=== PATIENT | female | born 1970 | race Caucasian/White ===

== ENCOUNTER → 2021-09-21 09:30 | Outpatient (BNVA) | payer OTHER, SELFPAY | PROVIDERS: PCP Internal Medicine; Visit Provider Psychiatry & Neurology Neurology | DX: G43.109 Migraine with aura, not intractable, without status migrainosus (principal); Z92.29 Personal history of other drug therapy | CPT/HCPCS: 64615; 99211; J0585 ==

== ENCOUNTER → 2021-11-17 09:52 | Outpatient (BNVA) | payer OTHER, SELFPAY | PROVIDERS: PCP Internal Medicine; Visit Provider Nurse Practitioner Family | DX: G43.109 Migraine with aura, not intractable, without status migrainosus (principal); Z71.89 Other specified counseling | CPT/HCPCS: 99211 ==

== ENCOUNTER → 2021-12-27 13:09 | Outpatient (BNVA) | payer OTHER, SELFPAY | PROVIDERS: PCP Internal Medicine; Visit Provider Psychiatry & Neurology Neurology | DX: G43.109 Migraine with aura, not intractable, without status migrainosus (principal); Z92.29 Personal history of other drug therapy | CPT/HCPCS: 64615; 99211; J0585 ==

== ENCOUNTER → 2022-03-27 10:50 | Outpatient (BNVA) | payer OTHER, SELFPAY | PROVIDERS: PCP Internal Medicine; Visit Provider Psychiatry & Neurology Neurology | DX: G43.119 Migraine with aura, intractable, without status migrainosus (principal); Z92.29 Personal history of other drug therapy | CPT/HCPCS: 64615; 99211; J0585 ==

== ENCOUNTER → 2022-07-04 13:22 | Outpatient (BNVA) | payer OTHER, SELFPAY | PROVIDERS: PCP Internal Medicine; Visit Provider Psychiatry & Neurology Neurology | DX: G43.119 Migraine with aura, intractable, without status migrainosus (principal); M47.812 Spondylosis without myelopathy or radiculopathy, cervical region | CPT/HCPCS: 64615; 99211; J0585 ==

== ENCOUNTER 2022-08-31 12:45 | Outpatient (REF) | payer OTHER, SELFPAY ==
--- NOTE | ~2022-08-31 | MR_ITS ---
EXAMINATION: MR CERVICAL SPINE WITHOUT CONTRAST CLINICAL INFORMATION: Spondylosis without myelopathy radiculopathy, cervical region. COMPARISON: Pain films of the cervical spine [facility] 03/23/2021. TECHNIQUE: MRI of the cervical spine was obtained using routine sequences without contrast. FINDINGS: VERTEBRAL BODIES AND PARASPINAL SOFT TISSUES: There is slight reversal of the normal cervical lordosis, less severe compared to the prior study. There is a mild retrolisthesis of C5 on C6. There is narrowing of intervertebral disc height with loss of signal from the disc at this level. Vertebral body heights are maintained and no fractures are demonstrated. There is likely a small hemangioma superior facet of C6 on the left. Marrow signal is homogenous. The regional soft tissues are unremarkable. Visualized upper lung mehta appear well-aerated. CERVICOMEDULLARY JUNCTION AND VISUALIZED POSTERIOR FOSSA: The craniocervical and posterior fossa structures are normal. Accounting for artifact, spinal cord signal appears normal. SPINAL LEVELS: C2-C3: The facet joints appear normal bilaterally. Posterior disc contour is normal. There is no spinal cord compression or central stenosis. The neural foramina are patent bilaterally. C3-C4: The facet joints appear normal bilaterally. Posterior disc contour is normal. There is no spinal cord compression or central stenosis. The neural foramina are patent bilaterally. C4-C5: There is mild right facet arthropathy. There is a shallow posterior disc protrusion without mass effect on the thecal sac and there is no central stenosis or cord compression. The neural foramina are patent bilaterally. C5-C6: The facet joints appear normal. There is a shallow posterior soft disc protrusion with some effacement of CSF ventral to the spinal cord, but there is no cord compression or central stenosis. The neural foramina are patent bilaterally. C6-C7: The facet joints appear normal. There is a shallow posterior soft disc protrusion with some effacement of CSF ventral to the spinal cord, but there is no cord compression or central stenosis. The neural foramina are patent bilaterally. C7-T1: The facet joints appear normal bilaterally. Posterior disc contour is normal. There is no spinal cord compression or central stenosis. The neural foramina are patent bilaterally. MR/MR cervical spine wo con IMPRESSION: 1. At C5-C6 and C6-C7 there are shallow posterior disc protrusions without cord compression or central stenosis. The neural foramina are patent. 2. At C4-C5 there is mild right facet arthropathy. There is a shallow posterior disc protrusion without cord compression or central stenosis. The neural foramina are patent. 3. There are no fractures or subluxations. Spinal cord signal appears normal.
== END 2022-08-31 12:46 | disposition home or self-care (01) ==
LOC: HO.MRI 12:45
PROVIDERS: PCP Internal Medicine; Visit Provider Psychiatry & Neurology Neurology
DX: M47.812 Spondylosis without myelopathy or radiculopathy, cervical region (principal)
CPT/HCPCS: 72141

== ENCOUNTER → 2022-10-12 10:17 | Outpatient (BNVA) | payer OTHER, SELFPAY | PROVIDERS: PCP Internal Medicine; Visit Provider Psychiatry & Neurology Neurology | DX: G43.709 Chronic migraine without aura, not intractable, without status migrainosus (principal); M47.812 Spondylosis without myelopathy or radiculopathy, cervical region | CPT/HCPCS: 64615; 99212; J0585 ==

== ENCOUNTER 2023-01-30 12:58 | Outpatient (AMB) | payer OTHER, SELFPAY ==
[2023-01-30 13:01] VITALS: BP 102/78; PULSE 60; O2SAT 98; BMI 32.6
--- NOTE | 2023-01-30 13:01 | MHC.OFFVIS ---
Intake Vital Signs 01/30/23 13:01 Height 5 ft 1 in Weight 172 lb 6 oz BMI 32.6 BP 102/78 Blood Pressure Location Rt brachial Position Sitting Pulse 60 Pulse Source Pulse Oximeter Pulse Oximetry (%) 98 Oxygen Delivery Method Room Air Intake Visit Reasons: Botox(B&B)-lvm Intake Note: Pt presents in office for botox. Hydrotherapist Required: No Allergies Penicillins Allergy (Mild, Verified 01/30/23 13:04) rash Medication List - Last Reconciled 01/30/23 by Gabby Marques MD clindamycin phosphate 1% topical QAM cyclobenzaprine 5 mg PO BEDTIME duloxetine 0 mg PO fluticasone propionate 50 mcg/actuation sprays intranasal fremanezumab-vfrm (Ajovy) 675 mg (4.5 mL) subcut [id number] gabapentin 600 mg PO BID lidocaine 5% 1 patch topical magnesium oxide 400 mg PO DAILY methylprednisolone 4 mg PO DAILY minocycline 100 mg PO Q12H omeprazole 20 mg PO DAILY onabotulinumtoxinA (Botox) to be injected to scalp and neck muscles by physician Q 3 mths; riboflavin (vitamin B2) 400 mg (4 x 100 mg) PO DAILY rizatriptan take 1 tablet at onset of headache; if no relief, may repeat 1 tablet after at least 2 hrs PO sumatriptan succinate 50 mg PO .max 4 tabs a day PRN topiramate 25 mg PO BID venlafaxine ER 75 mg PO DAILY venlafaxine ER 37.5 mg PO DAILY HPI HPI Comments History of Present Illness Details ? 52y/o female comes for treatment of migraines with botox. ??? Most frequent reported adverse reactions following injection of botox for chronic migraine include neck pain (9%), headache(5%), eyelid ptosis(4%), migraine(4%), muscular weakness(4%), musculuskeletal stiffness(4%), bronchitis(3%), injection site pain (3%), musculoskeletal pain(3%), myalgia(3%), facial paresis(2%), HTN(2%) and muscle spasms(2%) were discussed in detail. ??? Botulinum toxin typeA 200units Lot no [id number] expiration Aug 2025 was diluted with 4 cc of normal saline . ??? Muscles injected- ??? Frontalis 4 sites ??? Procerus 1 site ??? Health Promotion Educator- 2 sites ??? Temporalis- 8 sites ??? Occipitalis- 6 sites ??? Cervical paraspinals- 4 sites ??? Trapezius- 6 sites- 10 units each ??? 5 units each in 31 site ??? Total use- 185units ??? Discarded-15units she is doing better since she started on ajovy 5 mths ago [facility] Medical History (Updated 01/30/23 @ 14:06 by Gabby Marques MD) Anxiety Back pain Chronic migraine without aura Depression Neck pain No pertinent family history Surgical History No pertinent past surgical history Family History Father HTN (hypertension) Paternal Grandmother Diabetes Mother Diabetes Social History Alcohol intake: current Alcohol intake frequency: holidays/special occasions only Patient Tobacco Use Status: Never used Tobacco Review of Systems ENT Reports Normal hearing present Neuro Reports Normal hearing present Physical Exam Vital Signs: Oxygen Delivery Method Room Air 01/30/23 13:01 BMI result Body Mass Index 32.6 Const General: cooperative and healthy appearing Nutritional Appearance: obese Orientation/consciousness: patient oriented x3 Limitations: no limitations Resp Effort & Inspection: normal respiratory effort and able to speak in complete sentences Neuro General: patient oriented x3 Cranial nerves: Yes Normal hearing present Cognition (Neuro): normal cognition Gait exam (Neuro): Normal gait present Office Procedures Botulinum toxin Injection 72448 - Migraine Procedure code (CPT) selection complete Office Meds onabotulinumtoxinA Performing Provider: Gabby Marques MD Administered by: Gabby Marques MD on 01/30/23 14:11 Dose Route Admin Location Lot Number Expiration Date NDC Director Labor Standards 185 unit subcut [id number] 08/01/25 5486-5865-56 ALLERGAN/BOTOX Comments: see HPI Assessment & Plan Assessment & Plan (1) Chronic migraine without aura: Code(s): G43.709 - Chronic migraine without aura, not intractable, without status migrainosus (2) Cervical spondylosis: Code(s): M47.812 - Spondylosis without myelopathy or radiculopathy, cervical region Plan Patient tolerated the procedure well she will call with any side effect Continue AJOVY 225 mg sQX3( total 675 mg ) q 3mths Orders: Orders AMB Botulinum toxin Injection Today G43.709 - Chronic migraine without aura, not intractable, without status migrainosus Coding Level of Care Code Est Pt Level 1 (59465) Diagnoses Chronic migraine without aura G43.709 Cervical spondylosis M47.812 CPT Codes Botox Injection - Botox 3: 21171 - Migraine ([id number])
== END 2023-01-30 13:21 | disposition home or self-care (01) ==
PROVIDERS: Visit Provider Psychiatry & Neurology Neurology
DX: G43.709 Chronic migraine without aura, not intractable, without status migrainosus (principal); M47.812 Spondylosis without myelopathy or radiculopathy, cervical region
CPT/HCPCS: 64615; 99211

== ENCOUNTER → 2023-01-30 12:58 | Outpatient (BNVA) | payer OTHER, SELFPAY | PROVIDERS: Visit Provider Psychiatry & Neurology Neurology | DX: G43.709 Chronic migraine without aura, not intractable, without status migrainosus (principal); M47.812 Spondylosis without myelopathy or radiculopathy, cervical region | CPT/HCPCS: 64615; J0585 ==

== ENCOUNTER 2023-05-08 09:55 | Outpatient (AMB) | payer OTHER, SELFPAY ==
[2023-05-08 10:02] VITALS: BP 98/58; PULSE 51; RESP 16; O2SAT 98; BMI 32.3
--- NOTE | 2023-05-08 10:02 | MHC.OFFVIS ---
Intake Vital Signs 05/08/23 10:02 Height 5 ft 1 in Weight 171 lb 2 oz BMI 32.3 BP 98/58 L Blood Pressure Location Rt brachial Position Sitting Respiration 16 Pulse 51 Pulse Source Pulse Oximeter Pulse Oximetry (%) 98 Oxygen Delivery Method Room Air Intake Visit Reasons: Botox(B&B) - Confirmed Intake Note: Pt presents to the office for Botox injections. Commercial Real Estate Appraiser Required: No Allergies Penicillins Allergy (Mild, Verified 05/08/23 10:02) rash Medication List - Last Reconciled 05/08/23 by Gabby Marques MD clindamycin phosphate 1% topical QAM cyclobenzaprine 5 mg PO BEDTIME duloxetine 0 mg PO fluticasone propionate 50 mcg/actuation sprays intranasal fremanezumab-vfrm (Ajovy) 675 mg (4.5 mL) subcut [id number] gabapentin 600 mg PO BID lidocaine 5% 1 patch topical magnesium oxide 400 mg PO DAILY methylprednisolone 4 mg PO DAILY minocycline 100 mg PO Q12H omeprazole 20 mg PO DAILY onabotulinumtoxinA (Botox) to be injected to scalp and neck muscles by physician Q 3 mths; riboflavin (vitamin B2) 400 mg (4 x 100 mg) PO DAILY rizatriptan take 1 tablet at onset of headache; if no relief, may repeat 1 tablet after at least 2 hrs PO sumatriptan succinate 50 mg PO .max 4 tabs a day PRN topiramate 25 mg PO BID venlafaxine ER 75 mg PO DAILY venlafaxine ER 37.5 mg PO DAILY HPI HPI Comments History of Present Illness Details ? 52y/o female comes for treatment of migraines with botox. ??? Most frequent reported adverse reactions following injection of botox for chronic migraine include neck pain (9%), headache(5%), eyelid ptosis(4%), migraine(4%), muscular weakness(4%), musculuskeletal stiffness(4%), bronchitis(3%), injection site pain (3%), musculoskeletal pain(3%), myalgia(3%), facial paresis(2%), HTN(2%) and muscle spasms(2%) were discussed in detail. ??? Botulinum toxin typeA 200units Lot no [id number] expiration Aug 2025 was diluted with 4 cc of normal saline . ??? Muscles injected- ??? Frontalis 4 sites ??? Procerus 1 site ??? Enterprise Records Analyst- 2 sites ??? Temporalis- 8 sites ??? Occipitalis- 6 sites ??? Cervical paraspinals- 4 sites ??? Trapezius- 6 sites- 10 units each ??? 5 units each in 31 site ??? Total use- 185units ??? Discarded-15units she is doing better since she started on ajovy 5 mths ago [facility] Medical History Chronic migraine without aura Back pain Neck pain Anxiety Depression No pertinent family history Surgical History No pertinent past surgical history Family History Father HTN (hypertension) Paternal Grandmother Diabetes Mother Diabetes Social History Alcohol intake: current Alcohol intake frequency: holidays/special occasions only Patient Tobacco Use Status: Never used Tobacco Review of Systems ENT Reports Normal hearing present Neuro Reports Normal hearing present Physical Exam Vital Signs: Last Vital Signs Pulse 51 05/08/23 10:02 Resp 16 05/08/23 10:02 BP 98/58 L 05/08/23 10:02 Pulse Ox 98 05/08/23 10:02 Oxygen Delivery Method Room Air 05/08/23 10:02 BMI result Body Mass Index 32.3 Const General: cooperative and healthy appearing Nutritional Appearance: obese Orientation/consciousness: patient oriented x3 Limitations: no limitations Resp Effort & Inspection: normal respiratory effort and able to speak in complete sentences Neuro General: patient oriented x3 Cranial nerves: Yes Normal hearing present Cognition (Neuro): normal cognition Gait exam (Neuro): Normal gait present Office Procedures Botulinum toxin Injection 11147 - Migraine Procedure code (CPT) selection complete Office Meds onabotulinumtoxinA 200 unit solution for injection Performing Provider: Gabby Marques MD Performing Location[place] [facility] Administered by: Gabby Marques MD on 05/08/23 10:33 Dose Route Admin Location Dispensed Lot Number Expiration Date [facility] Certified Hand Therapist 185 unit subcut 200 units [id number] 08/01/25 4951-6812-66 ALLERGAN/BOTOX Comments: see hpi Assessment & Plan Assessment & Plan (1) Chronic migraine without aura: Code(s): G43.709 - Chronic migraine without aura, not intractable, without status migrainosus (2) Cervical spondylosis: Code(s): M47.812 - Spondylosis without myelopathy or radiculopathy, cervical region Plan Patient tolerated the procedure well she will call with any side effect Continue AJOVY 225 mg sQX3( total 675 mg ) q 3mths Orders: Orders AMB Botulinum toxin Injection Today G43.709 - Chronic migraine without aura, not intractable, without status migrainosus Referrals Pain Management Referral M54.2 - Cervicalgia, M54.9 - Dorsalgia, unspecified Coding Level of Care Code Est Pt Level 1 (60145) Diagnoses Chronic migraine without aura G43.709 Cervical spondylosis M47.812 CPT Codes Botox Injection - Botox 3: 22402 - Migraine ([id number])
== END 2023-05-08 10:56 | disposition home or self-care (01) ==
PROVIDERS: PCP Internal Medicine; Visit Provider Psychiatry & Neurology Neurology
DX: G43.709 Chronic migraine without aura, not intractable, without status migrainosus (principal)
CPT/HCPCS: 64615

== ENCOUNTER → 2023-05-08 09:55 | Outpatient (BNVA) | payer OTHER, SELFPAY | PROVIDERS: PCP Internal Medicine; Visit Provider Psychiatry & Neurology Neurology | DX: G43.709 Chronic migraine without aura, not intractable, without status migrainosus (principal); M47.812 Spondylosis without myelopathy or radiculopathy, cervical region | CPT/HCPCS: 64615; 99211; J0585 ==

== ENCOUNTER 2023-05-27 11:24 | Outpatient (AMB) | payer OTHER, SELFPAY ==
--- NOTE | 2023-05-27 11:26 | A.OFFVIS_ITS ---
Intake Vital Signs 05/27/23 11:28 Height 5 ft 1 in Weight 170 lb BMI 32.1 BP 115/71 Blood Pressure Location Lt brachial Position Sitting Respiration 12 Pulse 62 Pulse Source Pulse Oximeter Pulse Oximetry (%) 98 Oxygen Delivery Method Room Air Intake Visit Reasons: Cervicalgia & Dorsalgia, unspecified/LMOVM Allergies Penicillins Allergy (Mild, Verified 05/27/23 11:29) rash Medication List - Last Reconciled 05/27/23 by Sara Andrade LPN clindamycin phosphate 1% topical QAM cyclobenzaprine 5 mg PO BEDTIME doxycycline monohydrate 100 mg PO BID duloxetine 60 mg PO DAILY fluticasone propionate 50 mcg/actuation sprays intranasal fremanezumab-vfrm (Ajovy) 675 mg (4.5 mL) subcut [id number] gabapentin 600 mg PO BID lidocaine 5% 1 patch topical magnesium oxide 400 mg PO DAILY minocycline 100 mg PO Q12H omeprazole 20 mg PO DAILY onabotulinumtoxinA (Botox) to be injected to scalp and neck muscles by physician Q 3 mths; riboflavin (vitamin B2) 400 mg (4 x 100 mg) PO DAILY rizatriptan take 1 tablet at onset of headache; if no relief, may repeat 1 tablet after at least 2 hrs PO topiramate 25 mg PO BID venlafaxine ER 75 mg PO DAILY venlafaxine ER 37.5 mg PO DAILY HPI Cervicalgia & Dorsalgia, unspecified/LMOVM HPI Details 52-year-old female who presents today to the office for an evaluation of cervicalgia and dorsalgia The patient reports bilateral neck pain (R>L). Her pain starts from the back side of the neck, which radiates upward. She has had a history of migraines for the past 15 years. She states that her pain is worse at night. She underwent an MRI of the cervical spine that I reviewed in the office today. She actually does not have much degenerative change in her cervical spine looks pretty good for her age. Given the lack of underlying degenerative pathology, we discussed a trial of trigger point injections and occipital nerve blocks to see if that might help with her muscular tension and associated headache syndrome. She is amenable to proceed with trigger point injections. [facility] Medical History Chronic migraine without aura Back pain Neck pain Anxiety Depression No pertinent family history Surgical History No pertinent past surgical history Family History Father HTN (hypertension) Paternal Grandmother Diabetes Mother Diabetes Social History Alcohol intake: current Alcohol intake frequency: holidays/special occasions only Patient Tobacco Use Status: Never used Tobacco Review of Systems Const All systems reviewed & are unremarkable except as noted in HPI and below Physical Exam Vital Signs: Last Vital Signs Pulse 62 05/27/23 11:28 Resp 12 05/27/23 11:28 BP 115/71 05/27/23 11:28 Pulse Ox 98 05/27/23 11:28 Oxygen Delivery Method Room Air 05/27/23 11:28 BMI result Body Mass Index 32.1 General: Appears afebrile. Alert and oriented. Mood and affect appropriate. Follows and participates in conversation appropriately. Respiratory effort is unlabored. Able to transition from sit to stand unassisted. Ambulates with bilaterally normal heel strike and toe off. Office Procedures Injection Trigger Point Multi Right trigger point injections. Pre-procedure diagnosis: Myofascial pain Post-procedure diagnosis: Myofascial pain Site and number of trigger points: Right occipitalis, trapezius and rhomboid Solution: Total volume administered 10 ml (5 ml lidocaine 1% + 5 ml bupivacaine 0.25%). The procedure, its benefits, and its risks were explained to the patient and all questions were answered. A pulse oximeter monitor was attached and the patient was monitored throughout the procedure. Prior to the start of the procedure, a ?time out? was performed to confirm correct patient, procedure, and laterality. Trigger points were identified by manual palpation and marked. The skin was cleaned with Chloraprep. A 1.5 inch 25 G needle was used. Each of the trigger points were approximated and elevated in the direction away from the body. Dry needling then took place for five seconds. Approximately 0.5 ml to 1 ml of injectate was delivered to the trigger point followed by dry needling for five seconds. This process was repeated at each trigger point site. The patient tolerated the procedure well. Post-procedure, breath sounds were equal at both sides of the chest. The patient tolerated the procedure well, without complication. The patient denied any numbness, paresthesias, or weakness. Post-procedure vitals were recorded as part of the nursing discharge note in electronic medical record. Following a period of observation, the patient was discharged in stable condition with written discharge instructions. Trigger Point Multiple: 96957- Trigger point injection =/>3 Nerve Block Details: Right greater occipital nerve block A physical exam was used to isolate the location of the targeted nerves. These injection site was prepped with alcohol. Using a sterile technique, a 25 gauge 1.5-inch needle was introduced into each overlying nerve. A total of 3 mL 0.5% ropivacaine was injected around the right greater and lesser occipital nerves in a fan-like motion. Aspirations were negative for blood, CSF, and air prior to injection at all sites. The needle was removed, the skin cleansed and a sterile bandage was applied where needed. The patient tolerated the procedure well and no complications were encountered. Following the procedure the patient's vital signs were stable. The patient was discharged home in good condition with post-procedural instructions. Time Out: Immediately prior to the procedure, the following was verbally confirmed that there is a signed consent form and that the correct patient, planned procedure, site and side are consistent with documentation and that necessary equipment and/or blood products are available prior to the start of the case. Complications: none EBL: <5 cc. CPT: 31765-Xpnpeyd Occipital (right) Procedure code (CPT) selection complete Results Reviewed Results Reviewed: 08/31/22: MR CERVICAL SPINE WO CONTRAST FINDINGS: VERTEBRAL BODIES AND PARASPINAL SOFT TISSUES: There is slight reversal of the normal cervical lordosis, less severe compared to the prior study. There is a mild retrolisthesis of C5 on C6. There is narrowing of intervertebral disc height with loss of signal from the disc at this level. Vertebral body heights are maintained and no fractures are demonstrated. There is likely a small hemangioma superior facet of C6 on the left. Marrow signal is homogenous. The regional soft tissues are unremarkable. Visualized upper lung mehta appear well-aerated. CERVICOMEDULLARY JUNCTION AND VISUALIZED POSTERIOR FOSSA: The craniocervical and posterior fossa structures are normal. Accounting for artifact, spinal cord signal appears normal. SPINAL LEVELS: C2-C3: The facet joints appear normal bilaterally. Posterior disc contour is normal. There is no spinal cord compression or central stenosis. The neural foramina are patent bilaterally. C3-C4: The facet joints appear normal bilaterally. Posterior disc contour is normal. There is no spinal cord compression or central stenosis. The neural foramina are patent bilaterally. C4-C5: There is mild right facet arthropathy. There is a shallow posterior disc protrusion without mass effect on the thecal sac and there is no central stenosis or cord compression. The neural foramina are patent bilaterally. C5-C6: The facet joints appear normal. There is a shallow posterior soft disc protrusion with some effacement of CSF ventral to the spinal cord, but there is no cord compression or central stenosis. The neural foramina are patent bilaterally. C6-C7: The facet joints appear normal. There is a shallow posterior soft disc protrusion with some effacement of CSF ventral to the spinal cord, but there is no cord compression or central stenosis. The neural foramina are patent bilaterally. C7-T1: The facet joints appear normal bilaterally. Posterior disc contour is normal. There is no spinal cord compression or central stenosis. The neural foramina are patent bilaterally. IMPRESSION: 1. At C5-C6 and C6-C7 there are shallow posterior disc protrusions without cord compression or central stenosis. The neural foramina are patent. 2. At C4-C5 there is mild right facet arthropathy. There is a shallow posterior disc protrusion without cord compression or central stenosis. The neural foramina are patent. 3. There are no fractures or subluxations. Spinal cord signal appears normal. Assessment & Plan Assessment & Plan (1) Occipital headache: Code(s): R51.9 - Headache, unspecified (2) Myofascial neck pain: Code(s): M54.2 - Cervicalgia Plan Patient is status post right trigger point injections and right greater occipital nerve block. Patient tolerated procedure well and was discharged home in stable condition with discharge instructions. If she finds these helpful we can continue them at regular intervals every 1-2 months as needed. Scribed for Dr. Vidal by Catrachito Sosa, medical geneticist, on 05/27/2023. I, Dr. Vidal, have personally reviewed and agree with the information entered by the scribe. Coding Level of Care Code New Pt Level 4 (15526) Diagnoses Occipital headache R51.9 Myofascial neck pain M54.2 CPT Codes Details - Trigger Point Multiple: 19771- Trigger point injection =/>3 ([id number]) Nerve Block - CPT: 69536-Myelczc Occipital ([id number])
[2023-05-27 11:28] VITALS: BP 115/71; PULSE 62; RESP 12; O2SAT 98; BMI 32.1
== END 2023-05-27 11:41 | disposition home or self-care (01) ==
PROVIDERS: PCP Internal Medicine; Referring Provider Psychiatry & Neurology Neurology; Visit Provider Internal Medicine
DX: R51.9 Headache, unspecified (principal); M54.2 Cervicalgia
CPT/HCPCS: 20553; 64405; 99204

== ENCOUNTER → 2023-05-27 11:24 | Outpatient (BNVA) | payer OTHER, SELFPAY | PROVIDERS: PCP Internal Medicine; Referring Provider Psychiatry & Neurology Neurology; Visit Provider Internal Medicine | DX: M54.2 Cervicalgia (principal); M54.9 Dorsalgia, unspecified; G43.709 Chronic migraine without aura, not intractable, without status migrainosus | CPT/HCPCS: 20553; 64405; 99202; J0665 ==

== ENCOUNTER 2023-08-30 12:43 | Outpatient (AMB) | payer OTHER, SELFPAY ==
[2023-08-30 12:46] VITALS: BP 120/76; PULSE 68; RESP 16; O2SAT 98; BMI 32.1
--- NOTE | 2023-08-30 12:46 | A.OFFVIS_ITS ---
Intake Vital Signs 08/30/23 12:46 Height 5 ft 1 in Weight 170 lb BMI 32.1 BP 120/76 Blood Pressure Location Rt brachial Position Sitting Respiration 16 Pulse 68 Pulse Source Pulse Oximeter Pulse Oximetry (%) 98 Oxygen Delivery Method Room Air Intake Visit Reasons: Botox(B&B)-lvm Intake Note: Pt presents to the office for Botox injections. Civil Preparedness Coordinator Required: No Allergies Penicillins Allergy (Mild, Verified 08/30/23 12:46) rash Medication List - Last Reconciled 08/30/23 by Gabby Marques MD clindamycin phosphate 1% topical QAM cyclobenzaprine 5 mg PO BEDTIME doxycycline monohydrate 100 mg PO BID duloxetine 60 mg PO DAILY fluticasone propionate 50 mcg/actuation sprays intranasal fremanezumab-vfrm (Ajovy) 675 mg (4.5 mL) subcut [id number] gabapentin 600 mg PO BID lidocaine 5% 1 patch topical magnesium oxide 400 mg PO DAILY minocycline 100 mg PO Q12H omeprazole 20 mg PO DAILY onabotulinumtoxinA (Botox) to be injected to scalp and neck muscles by physician Q 3 mths; riboflavin (vitamin B2) 400 mg (4 x 100 mg) PO DAILY rizatriptan take 1 tablet at onset of headache; if no relief, may repeat 1 tablet after at least 2 hrs PO sumatriptan succinate take 1 tab at onset of headache; if no relief may repeat 1 tab after at least 2 hrs; max = 4 tabs/24 hr PO topiramate 25 mg PO BID venlafaxine ER 75 mg PO DAILY HPI HPI Comments History of Present Illness Details ? 53y/o female comes for treatment of migraines with botox. ??? Most frequent reported adverse reactions following injection of botox for chronic migraine include neck pain (9%), headache(5%), eyelid ptosis(4%), migraine(4%), muscular weakness(4%), musculuskeletal stiffness(4%), bron chitis(3%), injection site pain (3%), musculoskeletal pain(3%), myalgia(3%), facial paresis(2%), HTN(2%) and muscle spasms(2%) were discussed in detail. ??? Botulinum toxin typeA 200units Lot no [id number] expiration November 2025 was diluted with 4 cc of normal saline . ??? Muscles injected- ??? Frontalis 4 sites ??? Procerus 1 site ??? Electrical Engineering Teacher- 2 sites ??? Temporalis- 8 sites ??? Occipitalis- 6 sites ??? Cervical paraspinals- 4 sites ??? Trapezius- 6 sites- 10 units each ??? 5 units each in 31 site ??? Total use- 185units ??? Discarded-15units she is doing better since she started on ajovy 8 mths ago [facility] Medical History Chronic migraine without aura Back pain Neck pain Anxiety Depression No pertinent family history Surgical History No pertinent past surgical history Family History Father HTN (hypertension) Paternal Grandmother Diabetes Mother Diabetes Social History Alcohol intake: current Alcohol intake frequency: holidays/special occasions only Patient Tobacco Use Status: Never used Tobacco Review of Systems ENT Reports Normal hearing present Neuro Reports Normal hearing present Physical Exam Vital Signs: Last Vital Signs Pulse 68 08/30/23 12:46 Resp 16 08/30/23 12:46 BP 120/76 08/30/23 12:46 Pulse Ox 98 08/30/23 12:46 Oxygen Delivery Method Room Air 08/30/23 12:46 BMI result Body Mass Index 32.1 Const General: cooperative and healthy appearing Nutritional Appearance: obese Orientation/consciousness: patient oriented x3 Limitations: no limitations Resp Effort & Inspection: normal respiratory effort and able to speak in complete sentences Neuro General: patient oriented x3 Cranial nerves: Yes Normal hearing present Cognition (Neuro): normal cognition Gait exam (Neuro): Normal gait present Office Procedures Botulinum toxin Injection 18637 - Migraine Procedure code (CPT) selection complete Office Meds onabotulinumtoxinA 200 unit solution for injection Performing Provider: Gabby Marques MD Performing Location: [facility] Administered by: Gabby Marques MD on 08/30/23 13:15 Dose Route Admin Location Dispensed Lot Number Expiration Date [facility] Ed Transporter 185 unit subcut 200 units [id number] 11/29/25 9166-8655-18 ALLERGAN/BOTOX Comments: see HPI Assessment & Plan Assessment & Plan (1) Chronic migraine without aura: Code(s): G43.709 - Chronic migraine without aura, not intractable, without status migrainosus (2) Cervical spondylosis: Code(s): M47.812 - Spondylosis without myelopathy or radiculopathy, cervical region Plan Patient tolerated the procedure well she will call with any side effect Continue AJOVY 225 mg sQX3( total 675 mg ) q 3mths Orders: Orders AMB Botulinum toxin Injection Today G43.709 - Chronic migraine without aura, not intractable, without status migrainosus Coding Level of Care Code Est Pt Level 1 (93404) Diagnoses Chronic migraine without aura G43.709 Cervical spondylosis M47.812 CPT Codes Botox Injection - Botox 3: 65140 - Migraine ([id number])
== END 2023-08-30 13:10 | disposition home or self-care (01) ==
PROVIDERS: PCP Internal Medicine; Visit Provider Psychiatry & Neurology Neurology
DX: G43.709 Chronic migraine without aura, not intractable, without status migrainosus (principal)
CPT/HCPCS: 64615

== ENCOUNTER → 2023-08-30 12:43 | Outpatient (BNVA) | payer OTHER, SELFPAY | PROVIDERS: PCP Internal Medicine; Visit Provider Psychiatry & Neurology Neurology | DX: G43.709 Chronic migraine without aura, not intractable, without status migrainosus (principal); M47.812 Spondylosis without myelopathy or radiculopathy, cervical region | CPT/HCPCS: 64615; 99211; J0585 ==

== ENCOUNTER 2023-10-03 11:19 | Outpatient (AMB) | payer OTHER, SELFPAY ==
--- NOTE | 2023-10-03 11:22 | A.OFFVIS_ITS ---
Intake Vital Signs 10/03/23 11:26 Height 5 ft 1 in Weight 170 lb BMI 32.1 BP 118/68 Blood Pressure Location Rt brachial Position Sitting Pulse 82 Pulse Source Pulse Oximeter Pulse Oximetry (%) 98 Oxygen Delivery Method Room Air Intake Visit Reasons: CERVICALGIA Allergies Penicillins Allergy (Mild, Verified 10/03/23 11:27) rash HPI HPI Comments History of Present Illness Details Lorrie presents back to the office today for follow-up She underwent trigger point injections and occipital nerve blocks with Dr. Vidal 05/27/2023, she states after that procedure she developed bronchitis and has been sick, missed her follow-up, therefore she is following up today. Reports 50% pain relief after the injections. She is currently being followed by [facility], she saw them 1 month ago and they are in the process of getting insurance authorization for injections. She is unsure what type of injections they are planning on doing. Prior visit with Dr Vidal 05/27/2023: 52-year-old female who presents today to the office for an evaluation of cervicalgia and dorsalgia The patient reports bilateral neck pain (R>L). Her pain starts from the back side of the neck, which radiates upward. She has had a history of migraines for the past 15 years. She states that her pain is worse at night. She underwent an MRI of the cervical spine that I reviewed in the office today. She actually does not have much degenerative change in her cervical spine looks pretty good for her age. Given the lack of underlying degenerative pathology, we discussed a trial of trigger point injections and occipital nerve blocks to see if that might help with her muscular tension and associated headache syndrome. She is amenable to proceed with trigger point injections. [facility], [facility] Medical History Chronic migraine without aura Back pain Neck pain Anxiety Depression No pertinent family history Surgical History No pertinent past surgical history Family History Father HTN (hypertension) Paternal Grandmother Diabetes Mother Diabetes Social History Alcohol intake: current Alcohol intake frequency: holidays/special occasions only Patient Tobacco Use Status: Never used Tobacco Review of Systems Const All systems reviewed & are unremarkable except as noted in HPI and below Physical Exam Vital Signs: Last Vital Signs Pulse 82 10/03/23 11:26 BP 118/68 10/03/23 11:26 Pulse Ox 98 10/03/23 11:26 Oxygen Delivery Method Room Air 10/03/23 11:26 BMI result Body Mass Index 32.1 General: awake, alert, oriented. Answers questions appropriately. Fully engaged in examination. Skin: warm, dry, intact HEENT: Normocephalic. Hearing intact. Cardiac: External chest normal in appearance. Respiratory: No cough, audible wheezing or stridor. Abdomen: without gross distension. MS: No obvious swelling or deformities. Able to transition from sit to stand unassisted. Ambulates with bilaterally normal heel strike and toe off Neurological: Oriented to person, place, time and situation. Thought process intact. No gait abnormalities appreciated. Psychiatric: Appropriate mood and affect. Good judgment and insight. Assessment & Plan Assessment & Plan (1) Occipital headache: Code(s): R51.9 - Headache, unspecified (2) Myofascial neck pain: Code(s): M54.2 - Cervicalgia Plan Patient is status post right trigger point injections and right greater occipital nerve block. Patient tolerated procedure well and was discharged home in stable condition with discharge instructions. If she finds these helpful we can continue them at regular intervals every 1-2 months as needed. Patient presented to the office today for follow-up, 4 months status post trigger point injections and occipital nerve blocks. Follow-up as planned with [facility] for scheduled injections. Patient was advised that we can not request insurance authorization for further injections while she is currently undergoing injections at [facility]. This would put her at risk of receiving too much steroids if she is getting injections at both locations. She may return here if she does not find relief with treatment at [facility]. All questions and concerns were answered, patient agrees with the plan. Coding Level of Care Code Est Pt Level 3 (71726) Diagnoses Occipital headache R51.9 Myofascial neck pain M54.2
[2023-10-03 11:26] VITALS: BP 118/68; PULSE 82; O2SAT 98; BMI 32.1
== END 2023-10-03 11:35 | disposition home or self-care (01) ==
PROVIDERS: PCP Internal Medicine; Visit Provider Registered Nurse Emergency
DX: R51.9 Headache, unspecified (principal); M54.2 Cervicalgia
CPT/HCPCS: 99213

== ENCOUNTER → 2023-10-03 11:19 | Outpatient (BNVA) | payer OTHER, SELFPAY | PROVIDERS: PCP Internal Medicine; Visit Provider Registered Nurse Emergency | DX: R51.9 Headache, unspecified (principal); M54.2 Cervicalgia | CPT/HCPCS: 99212 ==

== ENCOUNTER → 2023-11-26 10:00 | Outpatient (BNVA) | payer OTHER, SELFPAY | PROVIDERS: PCP Internal Medicine; Visit Provider Psychiatry & Neurology Neurology ==

== ENCOUNTER 2023-12-02 09:30 | Outpatient (AMB) | payer OTHER, SELFPAY ==
--- NOTE | 2023-12-02 09:41 | MHC.OFFVIS ---
Vital Signs 12/02/23 09:42 Height 5 ft 1 in Weight 171 lb BMI 32.3 BP 102/62 Blood Pressure Location Rt brachial Position Sitting Respiration 17 Pulse 68 Pulse Source Palpation Intake Visit Reasons: BOTOX Intake Note: Pt presents to the office for Botox injections. Machine Filler Required: No Allergies Penicillins Allergy (Mild, Verified 12/02/23 09:41) rash Medication List - Last Reconciled 12/02/23 by Gabby Marques MD clindamycin phosphate 1% topical QAM cyclobenzaprine 5 mg PO BEDTIME duloxetine 60 mg PO DAILY fluticasone propionate 50 mcg/actuation sprays intranasal fremanezumab-vfrm (Ajovy) 675 mg (4.5 mL) subcut [id number] gabapentin 600 mg PO BID lidocaine 5% 1 patch topical magnesium oxide 400 mg PO DAILY minocycline 100 mg PO Q12H omeprazole 20 mg PO DAILY onabotulinumtoxinA (Botox) to be injected to scalp and neck muscles by physician Q 3 mths; riboflavin (vitamin B2) 400 mg (4 x 100 mg) PO DAILY rizatriptan take 1 tablet at onset of headache; if no relief, may repeat 1 tablet after at least 2 hrs PO sumatriptan succinate take 1 tab at onset of headache; if no relief may repeat 1 tab after at least 2 hrs; max = 4 tabs/24 hr PO topiramate 25 mg PO BID venlafaxine ER 75 mg PO DAILY HPI Comments Details: ? 53y/o female comes for treatment of migraines with botox. ??? Most frequent reported adverse reactions following injection of botox for chronic migraine include neck pain (9%), headache(5%), eyelid ptosis(4%), migraine(4%), muscular weakness(4%), musculuskeletal stiffness(4%), bronchitis(3%), injection site pain (3%), musculoskeletal pain(3%), myalgia(3%), facial paresis(2%), HTN(2%) and muscle spasms(2%) were discussed in detail. ??? Botulinum toxin typeA 200units Lot no [id number] expiration Aug 2025 was diluted with 4 cc of normal saline . ??? Muscles injected- ??? Frontalis 4 sites ??? Procerus 1 site ??? Analytics Consultant- 2 sites ??? Temporalis- 8 sites ??? Occipitalis- 6 sites ??? Cervical paraspinals- 4 sites ??? Trapezius- 6 sites- 10 units each ??? 5 units each in 31 site ??? Total use- 185units ??? Discarded-15units she is doing better since she started on ajovy 8 mths ago PFSH Medical History Chronic migraine without aura Back pain Neck pain Anxiety Depression No pertinent family history Surgical History No pertinent past surgical history Family History Father HTN (hypertension) Paternal Grandmother Diabetes Mother Diabetes Social History Alcohol intake: current Alcohol intake frequency: holidays/special occasions only Patient Tobacco Use Status: Never used Tobacco Review of Systems ENT Reports Normal hearing present Neuro Reports Normal hearing present Physical Exam Vital Signs: Last Vital Signs Pulse 68 12/02/23 09:42 Resp 17 12/02/23 09:42 BP 102/62 12/02/23 09:42 BMI result Body Mass Index 32.3 Const General: cooperative and healthy appearing Nutritional Appearance: obese Orientation/consciousness: patient oriented x3 Limitations: no limitations Resp Effort & Inspection: normal respiratory effort and able to speak in complete sentences Neuro General: patient oriented x3 Cranial nerves: Yes Normal hearing present Cognition (Neuro): normal cognition Gait exam (Neuro): Normal gait present Office Procedures Botulinum toxin Injection 20325 - Migraine Procedure code (CPT) selection complete Office Meds onabotulinumtoxinA 200 unit solution for injection Performing Provider: Gabby Marques MD Performing Location: [facility] – [place] [place] [facility] Administered by: Gabby Marques MD on 12/02/23 10:11 Dose Route Admin Location Dispensed Lot Number Expiration Date [facility] Executive Director [employer] 185 unit IM 200 units [id number] 08/01/25 4385-7029-84 ALLERGAN/BOTOX Comments: see HPI Assessment & Plan Assessment & Plan (1) Chronic migraine without aura: Code(s): G43.709 - Chronic migraine without aura, not intractable, without status migrainosus Category: Medical (2) Cervical spondylosis: Code(s): M47.812 - Spondylosis without myelopathy or radiculopathy, cervical region Category: Medical Plan Patient tolerated the procedure well she will call with any side effect Continue AJOVY 225 mg sQX3( total 675 mg ) q 3mths Orders: Orders AMB Botulinum toxin Injection Today G43.709 - Chronic migraine without aura, not intractable, without status migrainosus Medications: New onabotulinumtoxinA 200 units IM ONCE 1 ea 0RF G43.709 - Chronic migraine without aura, not intractable, without status migrainosus Coding Level of Care Code Est Pt Level 1 (67311) Diagnoses Chronic migraine without aura G43.709 Cervical spondylosis M47.812 CPT Codes Botox Injection - Botox 3: 99325 - Migraine ([id number])
[2023-12-02 09:42] VITALS: BP 102/62; PULSE 68; RESP 17; BMI 32.3
== END 2023-12-02 10:10 | disposition home or self-care (01) ==
PROVIDERS: PCP Internal Medicine; Visit Provider Psychiatry & Neurology Neurology
DX: G43.709 Chronic migraine without aura, not intractable, without status migrainosus (principal)
CPT/HCPCS: 64615

== ENCOUNTER → 2023-12-02 09:30 | Outpatient (BNVA) | payer OTHER, SELFPAY | PROVIDERS: PCP Internal Medicine; Visit Provider Psychiatry & Neurology Neurology | DX: G43.709 Chronic migraine without aura, not intractable, without status migrainosus (principal); M47.812 Spondylosis without myelopathy or radiculopathy, cervical region | CPT/HCPCS: 64615; 99211; J0585 ==

== ENCOUNTER 2024-03-12 12:55 | Outpatient (AMB) | payer OTHER, SELFPAY ==
--- NOTE | 2024-03-12 13:27 | A.OFFVIS_ITS ---
Vital Signs 03/12/24 13:28 BP 100/60 Blood Pressure Location Rt brachial Position Sitting Respiration 16 Pulse 76 Pulse Source Palpation Intake Visit Reasons: BOTOX Intake Note: Pt presents to the office for Botox injections for cervical spondylosis. Forest Management Professor Required: No Allergies Penicillins Allergy (Mild, Verified 03/12/24 13:27) rash Medication List - Last Reconciled 03/12/24 by Gabby Marques MD clindamycin phosphate 1% topical QAM cyclobenzaprine 5 mg PO BEDTIME duloxetine 60 mg PO DAILY fluticasone propionate 50 mcg/actuation sprays intranasal fremanezumab-vfrm (Ajovy) 675 mg (4.5 mL) subcut [id number] gabapentin 600 mg PO BID lidocaine 5% 1 patch topical magnesium oxide 400 mg PO DAILY minocycline 100 mg PO Q12H omeprazole 20 mg PO DAILY onabotulinumtoxinA (Botox) to be injected to scalp and neck muscles by physician Q 3 mths; riboflavin (vitamin B2) 400 mg (4 x 100 mg) PO DAILY rizatriptan take 1 tablet at onset of headache; if no relief, may repeat 1 tablet after at least 2 hrs PO sumatriptan succinate take 1 tab at onset of headache; if no relief may repeat 1 tab after at least 2 hrs; max = 4 tabs/24 hr PO topiramate 25 mg PO BID venlafaxine ER 75 mg PO DAILY HPI Comments Details: ? 53y/o female comes for treatment of migraines with botox.she has 2 headaches days a week .Prior to botox and ajovy she had daily headaches ??? Most frequent reported adverse reactions following injection of botox for chronic migraine include neck pain (9%), headache(5%), eyelid ptosis(4%), migraine(4%), muscular weakness(4%), musculuskeletal stiffness(4%), bronchitis(3%), injection site pain (3%), musculoskeletal pain(3%), myalgia(3%), facial paresis(2%), HTN(2%) and muscle spasms(2%) were discussed in detail. ??? Botulinum toxin typeA 200units Lot no [id number] expiration Aug 2025 was diluted with 4 cc of normal saline . ??? Muscles injected- ??? Frontalis 4 sites ??? Procerus 1 site ??? Brazing Machine Operator Helper- 2 sites ??? Temporalis- 8 sites ??? Occipitalis- 6 sites ??? Cervical paraspinals- 4 sites ??? Trapezius- 6 sites- 10 units each ??? 5 units each in 31 site ??? Total use- 185units ??? Discarded-15units she is doing better since she started on ajovy 8 mths ago Q PFSH Medical History Chronic migraine without aura Back pain Neck pain Anxiety Depression No pertinent family history Surgical History No pertinent past surgical history Family History Father HTN (hypertension) Paternal Grandmother Diabetes Mother Diabetes Social History Alcohol intake: current Alcohol intake frequency: holidays/special occasions only Patient Tobacco Use Status: Never used Tobacco Review of Systems ENT Reports Normal hearing present Neuro Reports Normal hearing present Physical Exam Vital Signs: Last Vital Signs Pulse 76 03/12/24 13:28 Resp 16 03/12/24 13:28 BP 100/60 03/12/24 13:28 Const General: cooperative and healthy appearing Nutritional Appearance: obese Orientation/consciousness: patient oriented x3 Limitations: no limitations Resp Effort & Inspection: normal respiratory effort and able to speak in complete sentences Neuro General: patient oriented x3 Cranial nerves: Yes Normal hearing present Cognition (Neuro): normal cognition Gait exam (Neuro): Normal gait present Office Procedures Botulinum toxin Injection 92288 - Migraine Procedure code (CPT) selection complete Office Meds onabotulinumtoxinA 200 unit solution for injection Performing Provider: Gabby Marques MD Performing Location: [facility] [place] [facility] Administered by: Gabby Marques MD on 03/12/24 14:01 Dose Route Admin Location Dispensed Lot Number Expiration Date [facility] Traffic Analyst 185 unit IM 200 units [id number] 05/31/26 4519-1582-00 ALLERGAN/BOTOX Comments: see HPI Assessment & Plan Assessment & Plan (1) Chronic migraine without aura: Code(s): G43.709 - Chronic migraine without aura, not intractable, without status migrainosus Category: Medical Qualifiers: Status migrainosus presence: without status migrainosus Intractability: intractable Qualified Code(s): G43.719 - Chronic migraine without aura, intractable, without status migrainosus (2) Cervical spondylosis: Code(s): M47.812 - Spondylosis without myelopathy or radiculopathy, cervical region Category: Medical Plan Patient tolerated the procedure well she will call with any side effect Continue AJOVY 225 mg sQX3( total 675 mg ) q 3mths Orders: Orders AMB Botulinum toxin Injection Today G43.719 - Chronic migraine without aura, intractable, without status migrainosus Medications: New onabotulinumtoxinA 200 units IM ONCE 1 ea 0RF migraine G43.719 - Chronic migraine without aura, intractable, without status migrainosus Coding Level of Care Code Est Pt Level 1 (94068) Diagnoses Intractable chronic migraine without aura and without status migrainosus G43.719 Status migrainosus presence: without status migrainosus Intractability: intractable Cervical spondylosis M47.812 CPT Codes Botox Injection - Botox 3: 31219 - Migraine ([id number])
[2024-03-12 13:28] VITALS: BP 100/60; PULSE 76; RESP 16
== END 2024-03-12 13:48 | disposition home or self-care (01) ==
PROVIDERS: PCP Internal Medicine; Visit Provider Psychiatry & Neurology Neurology
DX: G43.719 Chronic migraine without aura, intractable, without status migrainosus (principal)
CPT/HCPCS: 64615

== ENCOUNTER → 2024-03-12 12:55 | Outpatient (BNVA) | payer OTHER, SELFPAY | PROVIDERS: PCP Internal Medicine; Visit Provider Psychiatry & Neurology Neurology | DX: G43.719 Chronic migraine without aura, intractable, without status migrainosus (principal); M47.812 Spondylosis without myelopathy or radiculopathy, cervical region | CPT/HCPCS: 64615; 99211; J0585 ==

== ENCOUNTER 2024-06-11 09:29 | Outpatient (AMB) | payer OTHER, SELFPAY ==
--- OUTSIDE RECORDS SUMMARY | 2024-06-11 09:34 | XMS_ITS | Continuity of Care Document ---
Author Organization [facility] Address [address] [place] [address]- Support Name Relationship Address Phone JACKIE NIEVES unrelated friend Unknown Unavailab le BOOKER, NEETU Personal Relationship Unknown Unav ailable OSCAR TEE unrelated friend Unknown Unavai lable BOOKER, NEETU Personal Relationship Unknown Unav ailable BOOKER, NEETU Personal Relationship Unknown Unav ailable NO ONE, NO ONE Other Unknown Unavailable BOOKER, NEETU Personal Relationship Unknown Unav ailable BOOKER, NETEU Personal Relationship Unknown Unav ailable BOOKER, NEETU Personal Relationship Unknown Unav ailable BOOKER, NEETU Personal Relationship Unknown Unav ailable BOOKER, NEETU Personal Relationship Unknown Unav ailable BOOKER, NEETU Personal Relationship Unknown Unav ailable BOOKER, NEETU Personal Relationship Unknown Unav ailable BOOKER, NEETU Personal Relationship Unknown Unav ailable PACHECO, ROXENIA child Unknown Unavailable BOOKER, NEETU Personal Relationship Unknown Unav ailable BOOKER, NEETU Personal Relationship Unknown Unav ailable BOOKER, NEETU Personal Relationship Unknown Unav ailable BOOKER, NEETU Personal Relationship Unknown Unav ailable BOOKER, NEETU Personal Relationship Unknown Unav ailable YORKKRISTAN LEYVA spouse Unknown Unavailable BOOKER, NEETU Personal Relationship Unknown Unav ailable BOOKER, NEETU Personal Relationship Unknown Unav ailable Care Team Providers Care Timber Management Assistant Name Role Phone Lucy Palm MD Primary Care Physician [place] [facility] [place]/24 [facility] [address] [place] [id number]- Encounter Type: Triage Allergies, Adverse Reactions, Alerts Substance Criticality Severity Reaction Reaction Severity Status penicillin unknown Active buPROPion aggitation Active Duloxetine GI intolerence Acti ve venlafaxine Resolved Immunizations Given and Recorded Vaccine Date Status Refusal Reason influenza virus vaccine, inactivated 1 04/16/24 Gi franklin influenza virus vaccine, inactivated 05/21/23 Give n influenza virus vaccine, inactivated 04/08/21 Fransisco rded influenza virus vaccine, inactivated 03/31/20 Fransisco rded influenza virus vaccine, inactivated 06/08/16 Give n influenza virus vaccine, inactivated 06/04/14 Give n influenza virus vaccine, inactivated 2 04/18/13 Gi franklin influenza virus vaccine, inactivated 3 04/11/12 Gi franklin influenza virus vaccine, inactivated 4 06/05/10 Gi franklin hepatitis B adult vaccine 10/22/22 Given hepatitis B adult vaccine 5 09/04/22 Given tetanus-diphtheria toxoids (Td) 07/17/22 Given SARS-CoV-2 (COVID-19) mRNA BNT-162b2 vac 06/03/21 Recorded SARS-CoV-2 (COVID-19) mRNA BNT-162b2 vac 10/31/20 Recorded SARS-CoV-2 (COVID-19) mRNA BNT-162b2 vac 10/12/20 Recorded tetanus/diphtheria/pertussis, acel(Tdap) 01/13/13 Given Influenza Vaccine (oldterm) 6 03/04/09 Given Adacel (Tdap) (oldterm) 7 10/29/08 Given 1Result Comment: PT TOLERATED INJECTION WELL VIS GIVEN 2Admin Note: patient information sheet given 3Admin Note: flulaval vis given vis date 12/31/2011 4Admin Note: VIS GIVEN 02/07/10 serbian 5Result Comment: HEPLISAV- B # 1 Mfd: [employer]. 6Admin Note: vis 7Admin Note: vis given Medications acetaminophen 325 mg oral capsule 2 capsule = 650 mg, By Mouth, 3 times a day, PRN Pain , Mild, LABEL IN BELGIAN, # 180 capsule, 4 Refills, Maintenance, 05/21/23 9:38:00 AM EST, Capsule, [facility] #[id number], Partial fill uponpatient request if the prescription is for a schedule II opioid drug., 155, cm, 04/19/23 14:34:00 EDT, Height, 77.5, kg, 04/02/23 13:59:00 EDT, Dry Weight Start Date: 05/21/23 Stop Date: 07/20/23 Status: Ordered Quantity: 180.0 Unit: capsule Repeat number: 5 Ajovy = 100 mg, Subcutaneous Infusion, Every 3 months, 0 Refills, Maintenance, 03/03/24 8:25:00 AM EDT, Partial fill upon patient request if the prescription is for a schedule II opioid drug. Start Date: 03/03/24 Status: Ordered Repeat number: 1 Cock Up Wrist Splint/Brace - Left Cock Up Wrist Splint/Brace - Left, See Instructions, # 1 each, Refills 0, Tot. Refills 0, Maintenance, Wear During Day and Off At Night Dx: Wrist Tendonitis, Left (M67.834) Duration: 1 Year, 07/27/22 3:07:00 PM EST, Supply Start Date: 07/27/22 Status: Ordered Quantity: 1.0 Unit: each Repeat number: 1 diclofenac 1% topical gel 1 application, Topically, 4 times a day, 2g per application on elbow, wrist or hand; 4g per application on knee ankle or foot., # 100 Gm, 11 Refills, Maintenance, 06/06/23 8:51:00 PM EST, Gel, [facility] #[id number], Partial fill upon patient request if the prescription is for a schedule II opioid drug., 155, cm, 05/21/23 10:02:00 EST, Height, 77.5, kg, 04/02/23 13:59:00 EDT, Dry Weight Start Date: 06/06/23 Status: Ordered Quantity: 100.0 Unit: g Repeat number: 12 estradiol-norethindrone 0.05 mg-0.14 mg/24 hours transdermal film, extended release 1 patch, Topically, Every Saturday and , LABEL IN BELGIAN, # 26 patch, 3 Refills, Maintenance, 12/12/23 12:50:00 PM EDT, [facility] #[id number], Partial fill upon patient request if the prescription is for a schedule II opioid drug., 1 patch Topically Every Saturday and ,Instr:LABELIN BELGIAN, 155, cm, 11/05/23 11:54:00 EDT, Height, 80, kg, 10/09/23 10:39:00 EDT, Dry Weight Start Date: 12/12/23 Status: Ordered Quantity: 26.0 Unit: patch Repeat number: 4 fluticasone 50 mcg/inh nasal spray See Instructions, SHAKE LIQUID AND USE 2 SPRAYS IN EACH NOSTRIL DAILY, # 16 Gm, 11 Refills, Maintenance, 12/26/23 7:36:00 PM EDT, [facility] #[id number], 30, SHAKE LIQUID AND USE 2 SPRAYS IN EACHNOSTRIL DAILY, 155, cm, 11/05/23 11:54:00 EDT, Height, 80, kg, 10/09/23 10:39:00 EDT, Dry Weight Start Date: 12/26/23 Status: Ordered Quantity: 16.0 Unit: g Repeat number: 1 Lidoderm 5% film 2 patch, Topically, Daily, remove patches after 12 hours; 2 patches to pain areas; can cut patches in half; do not excede 2 patches., # 60 patch, 11 Refills, Maintenance, 06/06/23 8:51:00 PM EST, [facility] #[id number], Partial fill upon patient request if the prescription is for a schedule II o pioid drug., 2 patch Topically Daily,x30 days,Instr:remove patches after 12 hours; 2 patches to pain areas; can cut patches in half; do not excede 2 patches., 155, cm, 05/21/23 10:02:00 EST, Height, 77.5, kg, 04/02/23 13:59:00 EDT, Dry Weight Start Date: 06/06/23 Stop Date: 05/31/24 Status: Ordered Quantity: 60.0 Unit: patch Repeat number: 12 loratadine 10 mg oral tablet 10 mg, 1, tablet, By Mouth, Daily, # 30 tablet, Refills 4, Tot. Refills 4, Maintenance, 09/03/23 9:14:00 AM EST, Route to Pharmacy Electronically, [facility] #[id number], Partial fill upon patientrequest if the prescription is for a schedule II opioid drug., 155, cm, 08/02/23 9:26:00 EST, Height, 77.5, kg, 04/02/23 13:59:00 EDT, Dry Weight Start Date: 09/03/23 Stop Date: 01/31/24 Status: Ordered Quantity: 30.0 Unit: tablet Repeat number: 5 Melatonin 3 mg oral tablet 2 tablet, By Mouth, Daily at bedtime, PRN NEEDED FOR INSOMNIA, # 60 tablet, 2 Refills, Maintenance, 05/18/24 9:46:00 AM EST, [facility] #[id number], 30, TAKE 2 TABLETS BY MOUTH EVERY NIGHT ATBEDTIME NEEDED FOR INSOMNIA, 155, cm, 04/22/24 10:15:00 EDT, Height, 77.7, kg, 03/05/24 8:37:00 EDT, Dry Weight Start Date: 05/18/24 Status: Ordered Quantity: 60.0 Unit: tablet Repeat number: 1 MetFORMIN (Eqv-Glucophage XR) 500 mg oral tablet, extended release See Instructions, TAKE 1 TABLET DAILY FOR 1 WEEK THEN 1 TABLET 2 TIMES DAILY FOR 1 WEEK THEN 2 TABLET 2 TIMES DAILY, # 120 tablet, 4 Refills, Maintenance, 04/20/24 1:23:00 PM EDT, [facility] #[id number], 155, cm, 04/16/24 13:52:00 EDT, Height, 77.7, kg, 03/05/24 8:37:00 EDT, Dry Weight Start Date: 04/20/24 Status: Ordered Quantity: 120.0 Unit: tablet Repeat number: 1 methocarbamol 750 mg oral tablet 2 tablet = 1,500 mg, By Mouth, Daily, PRN Spasm, use sparingly, from [facility], # 20 tablet, 0 Refills, Maintenance, 11/05/23 11:54:00 AM EDT, Tablet, Partial fill upon patient request if the prescription is for a schedule II opioid drug. Start Date: 11/05/23 Status: Ordered Quantity: 20.0 Unit: tablet Repeat number: 1 omeprazole 20 mg oral delayed release tablet 1 tablet = 20 mg, By Mouth, Daily at bedtime, # 30 tablet, 0 Refills, Maintenance, 03/03/24 8:22:00 AM EDT, [facility] Tablet, Partial fill upon patient request if the prescription is for a schedule II opioid drug. Start Date: 03/03/24 Status: Ordered Quantity: 30.0 Unit: tablet Repeat number: 1 pregabalin 100 mg oral capsule 1 capsule = 100 mg, By Mouth, 2 times a day, take 1 cap daily x 7 days then 1 cap BID, # 60 capsule, 5 Refills, Maintenance, 04/16/24 1:31:00 PM EDT, [facility] #[id number], Partial fill upon patient request if the prescription is for a schedule II opioid drug., 155, cm, 04/16/24 13:10:00 EDT, Height, 77.7, kg, 03/05/24 8:37:00 EDT, Dry Weight Start Date: 04/16/24 Status: Ordered Quantity: 60.0 Unit: capsule Repeat number: 6 SUMAtriptan 50 mg oral tablet 1 tablet = 50 mg, By Mouth, Daily, PRN for migraine headache, may repeat dose after 2 hours up to amaximum of 2, # 9 tablet, 0 Refills, Maintenance, 03/03/24 8:24:00 AM EDT, Tablet, Partial fill upon patient request if the prescription is for a schedule II opioid drug. Start Date: 03/03/24 Status: Ordered Quantity: 9.0 Unit: tablet Repeat number: 1 Tens Unit Pads Tens Unit Pads, See Instructions, # 4 each, Refills 11, Tot. Refills 11, Maintenance, Use as directed for pain; Dx: Fibromyalgia M79.7; Duration: Lifetime, 05/24/23 4:20:00 PM EST, Supply Start Date: 05/24/23 Status: Ordered Quantity: 4.0 Unit: each Repeat number: 12 Tens Unit with Supplies Tens Unit with Supplies, See Instructions, # 1 each, Refills 0, Tot. Refills 0, Maintenance, Use asdirected for pain; Dx: Fibromyalgia M79.7; Duration: Lifetime, 05/24/23 4:18:00 PM EST, Supply Start Date: 05/24/23 Status: Ordered Quantity: 1.0 Unit: each Repeat number: 1 topiramate 25 mg oral tablet 1 tablet = 25 mg, By Mouth, 2 times a day, # 60 tablet, 5 Refills, Maintenance, 03/03/24 8:21:00 AM EDT, Partial fill upon patient request if the prescription is for a schedule II opioid drug. Start Date: 03/03/24 Status: Ordered Quantity: 60.0 Unit: tablet Repeat number: 1 venlafaxine 37.5 mg oral capsule, extended release 1 capsule = 37.5 mg, By Mouth, Daily in AM, # 30 capsule, 0 Refills, Maintenance, 11/05/23 11:54:00 AM EDT, ER Capsule, Partial fill upon patient request if the prescription is for a schedule II opioiddrug. Start Date: 11/05/23 Status: Ordered Quantity: 30.0 Unit: capsule Repeat number: 1 Problem List Condition Confirmation Course Effective Dates Status H ealth Status Informant Acne vulgaris, Adult Confirmed Active Allergic rhinitis Confirmed Active Cervical disc disease - PRM cervical block 10/2023 Confirmed Active Chronic cough - PFTs and methacholine challenge - negative 09/2023 Confirmed Active C2-C3 subluxation Confirmed Active Pelvic organ prolapse quantification stage 2 cystocele - sling and mesh 03/2024 Confirmed Active Stress incontinence, female Confirmed Active Fibromyalgia Confirmed Active Insomnia Confirmed Active Migraine 1, 2 Confirmed Stable Active Obese class I Confirmed Active Mild recurrent major depression Confirmed Active Hepatitis C - sustained viral supression Confirmed Active 1F/U with Neurology/[facility], Dr. Pierre, on neuroleptics + BOTOX with good efficacy. 2Possible substance abuser with multiple / frequent ED visits. [employer] case technician following. Social History Social History Type Response Smoking Status Never smoker entered on: 04/27/15 Sex Female Sex Representation Female (finding) Patient Care team information Care Team Personnel Name: Lucy Palm MD Position: [facility] Physician - Primary Care Member Role: PCP Address: [address] [place] [address] Telecom: Care Team Related Persons Name: KRISTAN YORK Name: NO ONE, NO ONE Name: LISS PACHECO Name: JACKIE NIEVES Insurance Providers Guarantor name: NEETU JOSHI Health Plan Information #: 1 Payer: [employer] [facility] [employer] Member Number: NA Policy Number: NA Group Number: NA
--- OUTSIDE RECORDS SUMMARY | 2024-06-11 09:34 | XMS_ITS | Continuity of Care Document ---
Author Organization [facility] Address [address] [place] [address]- Support Name Relationship Address Phone JACKIE NIEVES [...] Unknown Unav ailable Care Team Providers Care Paving Crew Foreman Name Role Phone Lucy Palm MD Primary Care Physician [place] [facility] [place] [facility] [address] [place] [address]- Encounter Type: Triage Allergies, Adverse Reactions, Alerts [...] date 12/31/2011 4Admin Note: VIS GIVEN 02/07/10 hebrew 5Result Comment: HEPLISAV- B # 1 Mfd: [facility]. 6Admin Note: vis 7Admin Note: vis given Medications acetaminophen 325 mg oral capsule 2 capsule = 650 mg, By Mouth, 3 times a day, PRN Pain , Mild, LABEL IN TONGAN, # 180 capsule, 4 Refills, Maintenance, 05/21/23 9:38:00 AM EST, Capsule, [facility] #[id number], Partial fill uponpatient request if the prescription [...] Refills, Maintenance, 06/06/23 8:51:00 PM EST, Gel, [facility] #[id number], Partial fill upon patient request if the prescription is for a schedule II opioid drug., 155, cm, 05/21/23 10:02:00 EST, Height, 77.5, kg, 04/02/23 13:59:00 EDT, Dry Weight Start Date: 06/06/23 Status: Ordered Quantity: 100.0 Unit: g Repeat number: 12 estradiol-norethindrone 0.05 mg-0.14 mg/24 hours transdermal film, extended release 1 patch, Topically, Every Saturday and , LABEL IN TONGAN, # 26 patch, 3 Refills, Maintenance, 12/12/23 12:50:00 PM EDT, [facility] #[id number], Partial fill upon patient request if the prescription is for a schedule II opioid drug., 1 patch Topically Every Saturday and ,Instr:LABELIN TONGAN, 155, cm, 11/05/23 11:54:00 EDT, Height, 80, kg, 10/09/23 10:39:00 EDT, Dry Weight Start Date: 12/12/23 Status: Ordered Quantity: 26.0 Unit: patch Repeat number: 4 fluticasone 50 mcg/inh nasal spray See Instructions, SHAKE LIQUID AND USE 2 SPRAYS IN EACH NOSTRIL DAILY, # 16 Gm, 11 Refills, Maintenance, 12/26/23 7:36:00 PM EDT, [facility] #[id number], 30, SHAKE LIQUID AND USE 2 SPRAYS [...] 11 Refills, Maintenance, 06/06/23 8:51:00 PM EST, [facility] #[id number], Partial fill upon patient request if the [...] 9:14:00 AM EST, Route to Pharmacy Electronically, [facility] #[id number], Partial fill upon patientrequest if the prescription [...] 2 Refills, Maintenance, 05/18/24 9:46:00 AM EST, [facility] #[id number], 30, TAKE 2 TABLETS BY MOUTH EVERY [...] 4 Refills, Maintenance, 04/20/24 1:23:00 PM EDT, [facility] #[id number], 155, cm, 04/16/24 13:52:00 EDT, Height, 77.7, [...] 5 Refills, Maintenance, 04/16/24 1:31:00 PM EDT, [facility] #[id number], Partial fill upon patient request if the [...] with multiple / frequent ED visits. 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 Social History Social History Type Response Smoking Status Never smoker entered on: 04/27/15 Sex Female Sex Representation Female (finding) Patient Care team information Care Team Personnel Name: Lucy Palm MD Position: [facility] Physician - Primary Care Member Role: PCP Address: [address] [place] [address] Telecom: Care Team Related Persons Name: KRISTAN YORK Name: NO ONE, NO ONE Name: LISS PACHECO Name: JACKIE NIEVES Insurance Providers Guarantor name: NEETU JOSHI Health Plan Information #: 1 Payer: [employer] [facility] [employer] Member Number: NA Policy Number: NA Group Number: NA
--- OUTSIDE RECORDS SUMMARY | 2024-06-11 09:34 | XMS_ITS | Continuity of Care Document ---
Author Organization [facility] Address [address] [place] [address]- Support Name Relationship Address Phone JACKIE NIEVES [...] Unknown Unav ailable Care Team Providers Care Goat Herder Name Role Phone Lucy Palm MD Primary Care Physician [phone] [place] [facility] [place] [facility] [place]16/24 - 05/16/24 [facility] [address] [place] [phone] Encounter Diagnosis Chronic cough - PFTs and methacholine challenge - negative 09/2023(Discharge Diagnosis) - 11/01/23 Attending Physician: Soledad Fritz Encounter Type: Triage Allergies, Adverse Reactions, Alerts Substance Criticality Severity Reaction Reaction Severity Status penicillin unknown Active buPROPion aggitation Active venlafaxine Resolved Duloxetine GI intolerence Acti ve Immunizations Given and Recorded Vaccine Date Status [...] date 12/31/2011 4Admin Note: VIS GIVEN 02/07/10 yi 5Result Comment: HEPLISAV- B # 1 Mfd: [facility]. 6Admin Note: vis 7Admin Note: vis given Medications acetaminophen 325 mg oral capsule 2 capsule = 650 mg, By Mouth, 3 times a day, PRN Pain , Mild, LABEL IN MALDIVIAN, # 180 capsule, 4 Refills, Maintenance, 05/21/23 9:38:00 AM EST, Capsule, [facility] #[id number], Partial fill uponpatient request if the prescription [...] Refills, Maintenance, 06/06/23 8:51:00 PM EST, Gel, [facility] #[id number], Partial fill upon patient request if the prescription is for a schedule II opioid drug., 155, cm, 05/21/23 10:02:00 EST, Height, 77.5, kg, 04/02/23 13:59:00 EDT, Dry Weight Start Date: 06/06/23 Status: Ordered Quantity: 100.0 Unit: g Repeat number: 12 estradiol-norethindrone 0.05 mg-0.14 mg/24 hours transdermal film, extended release 1 patch, Topically, Every Saturday and , LABEL IN MALDIVIAN, # 26 patch, 3 Refills, Maintenance, 12/12/23 12:50:00 PM EDT, [facility] #[id number], Partial fill upon patient request if the prescription is for a schedule II opioid drug., 1 patch Topically Every Saturday and ,Instr:LABELIN MALDIVIAN, 155, cm, 11/05/23 11:54:00 EDT, Height, 80, kg, 10/09/23 10:39:00 EDT, Dry Weight Start Date: 12/12/23 Status: Ordered Quantity: 26.0 Unit: patch Repeat number: 4 fluticasone 50 mcg/inh nasal spray See Instructions, SHAKE LIQUID AND USE 2 SPRAYS IN EACH NOSTRIL DAILY, # 16 Gm, 11 Refills, Maintenance, 12/26/23 7:36:00 PM EDT, [facility] #[id number], 30, SHAKE LIQUID AND USE 2 SPRAYS [...] 11 Refills, Maintenance, 06/06/23 8:51:00 PM EST, [facility] #[id number], Partial fill upon patient request if the [...] 9:14:00 AM EST, Route to Pharmacy Electronically, [facility] #[id number], Partial fill upon patientrequest if the prescription is for a schedule II opioid drug., 155, cm, 08/02/23 9:26:00 EST, Height, 77.5, kg, 04/02/23 13:59:00 EDT, Dry Weight Start Date: 09/03/23 Stop Date: 01/31/24 Status: Ordered Quantity: 30.0 Unit: tablet Repeat number: 5 melatonin 3 mg oral tablet 2 tablet = 6 mg, By Mouth, Daily at bedtime, PRN for insomnia, # 60 tablet, 4 Refills, Maintenance,09/03/23 9:23:00 AM EST, Tablet, [facility] #[id number], Partial fill upon patient request if the prescription is for a schedule II opioid drug., 155, cm, 08/02/23 9:26:00 EST, Height, 77.5, kg, 04/02/23 13:59:00 EDT, Dry Weight Start Date: 09/03/23 Status: Ordered Quantity: 60.0 Unit: tablet Repeat number: 5 MetFORMIN (Eqv-Glucophage XR) 500 mg oral tablet, extended release See Instructions, TAKE 1 TABLET DAILY FOR 1 WEEK THEN 1 TABLET 2 TIMES DAILY FOR 1 WEEK THEN 2 TABLET 2 TIMES DAILY, # 120 tablet, 4 Refills, Maintenance, 04/20/24 1:23:00 PM EDT, [facility] #[id number], 155, cm, 04/16/24 13:52:00 EDT, Height, 77.7, [...] 5 Refills, Maintenance, 04/16/24 1:31:00 PM EDT, [facility] #[id number], Partial fill upon patient request if the [...] with multiple / frequent ED visits. [employer] nurse outreach case manager following. Diagnosis Diagnosis Type Effective Dates Health Status Clinical Service Informant Chronic cough - PFTs and methacholine challenge - negative 09/2023 Discharge Diagnosis 11/01/23 Non-Specified Social History Social History Type Response Smoking Status Never smoker entered on: 04/27/15 Sex Female Sex Representation Female (finding) Radiology * Event Display: X-Ray Spine, Non- BH Authored Date: Patient Care team information Care Team Personnel Name: Lucy Palm MD Position: [facility] Physician - Primary Care Member Role: PCP Address: [address] [place] [address] Adult [address] Telecom: Care Team Related Persons Name: KRISTAN YORK Name: NO ONE, NO ONE Name: LISS PACHECO Name: JACKIE NIEVES Insurance Providers Guarantor name: NEETU JOSHI Health Plan Information #: 1 Payer: [facility] Member Number: NA Policy Number: NA Group Number: NA
--- OUTSIDE RECORDS SUMMARY | 2024-06-11 09:34 | XMS_ITS | Continuity of Care Document ---
Author Organization [facility] Address [address] [place] [address]- Support Name Relationship Address Phone JACKIE NIEVES [...] Unav ailable PACHECO, ROXENIA child Unknown Unavailable BOOKRE, NEETU Personal Relationship Unknown Unav ailable BOOKER, NEETU Personal Relationship Unknown Unav ailable BOOKER, NEETU Personal Relationship Unknown Unav ailable BOOKER, NEETU Personal Relationship Unknown Unav ailable BOOKER, NEETU Personal Relationship Unknown Unav ailable YORKKRISTAN LEYVA spouse Unknown Unavailable BOOKER, NEETU Personal Relationship Unknown Unav ailable BOOKER, NEETU Personal Relationship Unknown Unav ailable Care Team Providers Care Vegetable Cutter Name Role Phone Lucy Palm MD Primary Care Physician [id number] Date(s): 04/22/24 - 05/22/24 [facility] [address] [place] [address]- Attending Physician: AdmSoledad johnson Admitting Physician: Admtr, [id number] Referring Physician: Soledad Fritz Encounter Type: Triage Allergies, [...] date 12/31/2011 4Admin Note: VIS GIVEN 02/07/10 slovak 5Result Comment: HEPLISAV- B # 1 Mfd: Drybar. 6Admin Note: vis 7Admin Note: vis given Medications acetaminophen 325 mg oral capsule 2 capsule = 650 mg, By Mouth, 3 times a day, PRN Pain , Mild, LABEL IN BRAZILIAN, # 180 capsule, 4 Refills, Maintenance, 05/21/23 9:38:00 AM EST, Capsule, [facility] #[id number], Partial fill uponpatient request if the prescription [...] Refills, Maintenance, 06/06/23 8:51:00 PM EST, Gel, [facility] #[id number], Partial fill upon patient request if the prescription is for a schedule II opioid drug., 155, cm, 05/21/23 10:02:00 EST, Height, 77.5, kg, 04/02/23 13:59:00 EDT, Dry Weight Start Date: 06/06/23 Status: Ordered Quantity: 100.0 Unit: g Repeat number: 12 estradiol-norethindrone 0.05 mg-0.14 mg/24 hours transdermal film, extended release 1 patch, Topically, Every Saturday and , LABEL IN BRAZILIAN, # 26 patch, 3 Refills, Maintenance, 12/12/23 12:50:00 PM EDT, [facility] #56274, Partial fill upon patient request if the prescription is for a schedule II opioid drug., 1 patch Topically Every Saturday and ,Instr:LABELIN BRAZILIAN, 155, cm, 11/05/23 11:54:00 EDT, Height, 80, kg, 10/09/23 10:39:00 EDT, Dry Weight Start Date: 12/12/23 Status: Ordered Quantity: 26.0 Unit: patch Repeat number: 4 fluticasone 50 mcg/inh nasal spray See Instructions, SHAKE LIQUID AND USE 2 SPRAYS IN EACH NOSTRIL DAILY, # 16 Gm, 11 Refills, Maintenance, 12/26/23 7:36:00 PM EDT, [facility] #[id number], 30, SHAKE LIQUID AND USE 2 SPRAYS [...] 11 Refills, Maintenance, 06/06/23 8:51:00 PM EST, [facility] #[id number], Partial fill upon patient request if the [...] 9:14:00 AM EST, Route to Pharmacy Electronically, [facility] #[id number], Partial fill upon patientrequest if the prescription [...] 2 Refills, Maintenance, 05/18/24 9:46:00 AM EST, [facility] #28391, 30, TAKE 2 TABLETS BY MOUTH EVERY [...] 4 Refills, Maintenance, 04/20/24 1:23:00 PM EDT, [facility] #[id number], 155, cm, 04/16/24 13:52:00 EDT, Height, 77.7, [...] 5 Refills, Maintenance, 04/16/24 1:31:00 PM EDT, [facility] #22778, Partial fill upon patient request if the [...] visits. [employer] nurse outreach case manager following. Social History Social History Type Response Smoking Status Never smoker entered on: 04/27/15 Sex Female Sex Representation Female (finding) Patient Care team information Care Team Personnel Name: Lucy Palm MD Position: S Physician - Primary Care Member Role: PCP Address: [address] [place] [address] Adult Medicine [address] Telecom: Care Team Related Persons Name: KRISTAN YORK Name: NO ONE, NO ONE Name: LISS PACHECO Name: JACKIE NIEVES Insurance Providers Guarantor name: NEETU BOOKERSTEPHEN JOSHI Health Plan Information #: 1 Payer: [employer] [facility] [employer] Member Number: NA Policy Number: NA Group Number: NA
--- OUTSIDE RECORDS SUMMARY | 2024-06-11 09:35 | XMS_ITS | Continuity of Care Document ---
Author Organization [facility] Address [address] [facility], [address] [place] [address]- Support Name Relationship Address Phone JACKIE NIEVES [...] BOOKER, NEETU Personal Relationship Unknown Unav ailable YORK, KRISTAN spouse Unknown Unavailable BOOKER, NEETU Personal Relationship Unknown Unav ailable BOOKER, NEETU Personal Relationship Unknown Unav ailable Care Team Providers Care Wool Shearing Supervisor Name Role Phone Lucy Palm MD Primary Care Physician [phone] Encounter [facility] Date[facility]s): 04[facility]30[facility] [address] [facility], [address] [place] [address]- Attending Physician: Soledad Fritz Admitting Physician: Soledad Fritz Referring Physician: Soledad Fritz Encounter Type: Triage [...] date 12/31/2011 4Admin Note: VIS GIVEN 02/07/10 korean 5Result Comment: HEPLISAV- B # 1 Mfd: 2nd Watch. 6Admin Note: vis 7Admin Note: vis given Medications acetaminophen 325 mg oral capsule 2 capsule = 650 mg, By Mouth, 3 times a day, PRN Pain , Mild, LABEL IN BOLIVIAN, # 180 capsule, 4 Refills, Maintenance, 05/21/23 9:38:00 AM EST, Capsule, [facility] #[id number], Partial fill uponpatient request if the prescription [...] Refills, Maintenance, 06/06/23 8:51:00 PM EST, Gel, [facility] #[id number], Partial fill upon patient request if the prescription is for a schedule II opioid drug., 155, cm, 05/21/23 10:02:00 EST, Height, 77.5, kg, 04/02/23 13:59:00 EDT, Dry Weight Start Date: 06/06/23 Status: Ordered Quantity: 100.0 Unit: g Repeat number: 12 estradiol-norethindrone 0.05 mg-0.14 mg/24 hours transdermal film, extended release 1 patch, Topically, Every Saturday and , LABEL IN BOLIVIAN, # 26 patch, 3 Refills, Maintenance, 12/12/23 12:50:00 PM EDT, [facility] #[id number], Partial fill upon patient request if the prescription is for a schedule II opioid drug., 1 patch Topically Every Saturday and ,Instr:ELOINA BOLIVIAN, 155, cm, 11/05/23 11:54:00 EDT, Height, 80, kg, 10/09/23 10:39:00 EDT, Dry Weight Start Date: 12/12/23 Status: Ordered Quantity: 26.0 Unit: patch Repeat number: 4 fluticasone 50 mcg/inh nasal spray See Instructions, SHAKE LIQUID AND USE 2 SPRAYS IN EACH NOSTRIL DAILY, # 16 Gm, 11 Refills, Maintenance, 12/26/23 7:36:00 PM EDT, [facility] #[id number], 30, SHAKE LIQUID AND USE 2 SPRAYS [...] 11 Refills, Maintenance, 06/06/23 8:51:00 PM EST, [facility] #51086, Partial fill upon patient request if the [...] 9:14:00 AM EST, Route to Pharmacy Electronically, [facility] #[id number], Partial fill upon patientrequest if the prescription [...] 2 Refills, Maintenance, 05/18/24 9:46:00 AM EST, [facility] #14927, 30, TAKE 2 TABLETS BY MOUTH EVERY [...] 4 Refills, Maintenance, 04/20/24 1:23:00 PM EDT, [facility] #[id number], 155, cm, 04/16/24 13:52:00 EDT, Height, 77.7, [...] 5 Refills, Maintenance, 04/16/24 1:31:00 PM EDT, [facility] #31514, Partial fill upon patient request if the [...] with multiple / frequent ED visits. 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 Social History Social History Type Response Smoking Status Never smoker entered on: 04/27/15 Sex Female Sex Representation Female (finding) Patient Care team information Care Team Personnel Name: Lucy Palm MD Position: [facility] Physician - Primary Care Member Role: PCP Address: [address] [place] [address] Adult Medicine [address] Telecom: Care Team Related Persons Name: KRISTAN YORK Name: NO ONE, NO ONE Name: LISS PACHECO Name: JACKIE NIEVES Insurance Providers Guarantor name: NEETU JOSHI Health Plan Information #: 1 Payer: [employer] [facility] [employer] Member Number: NA Policy Number: NA Group Number: NA
--- OUTSIDE RECORDS SUMMARY | 2024-06-11 09:35 | XMS_ITS | Continuity of Care Document ---
Author Organization [facility] Address [address] [place] [address]- Support Name Relationship Address Phone JACKIE NIEVES [...] Unknown Unav ailable Care Team Providers Care Bottom Polisher Name Role Phone Lucy Palm MD Primary Care Physician [phone] Encounter [facility] [place] Date(s): 04/20/24 - 05/20/24 [facility] [place], [place] [phone] Encounter Type: Triage Allergies, Adverse Reactions, Alerts [...] date 12/31/2011 4Admin Note: VIS GIVEN 02/07/10 thai 5Result Comment: HEPLISAV- B # 1 Mfd: Pet360. 6Admin Note: vis 7Admin Note: vis given Medications acetaminophen 325 mg oral capsule 2 capsule = 650 mg, By Mouth, 3 times a day, PRN Pain , Mild, LABEL IN GABONESE, # 180 capsule, 4 Refills, Maintenance, 05/21/23 9:38:00 AM EST, Capsule, [facility] #[id number], Partial fill uponpatient request if the prescription [...] Refills, Maintenance, 06/06/23 8:51:00 PM EST, Gel, [facility] #[id number], Partial fill upon patient request if the prescription is for a schedule II opioid drug., 155, cm, 05/21/23 10:02:00 EST, Height, 77.5, kg, 04/02/23 13:59:00 EDT, Dry Weight Start Date: 06/06/23 Status: Ordered Quantity: 100.0 Unit: g Repeat number: 12 estradiol-norethindrone 0.05 mg-0.14 mg/24 hours transdermal film, extended release 1 patch, Topically, Every Saturday and , LABEL IN GABONESE, # 26 patch, 3 Refills, Maintenance, 12/12/23 12:50:00 PM EDT, [facility] #[id number], Partial fill upon patient request if the prescription is for a schedule II opioid drug., 1 patch Topically Every Saturday and ,Instr:LABELIN GABONESE, 155, cm, 11/05/23 11:54:00 EDT, Height, 80, kg, 10/09/23 10:39:00 EDT, Dry Weight Start Date: 12/12/23 Status: Ordered Quantity: 26.0 Unit: patch Repeat number: 4 fluticasone 50 mcg/inh nasal spray See Instructions, SHAKE LIQUID AND USE 2 SPRAYS IN EACH NOSTRIL DAILY, # 16 Gm, 11 Refills, Maintenance, 12/26/23 7:36:00 PM EDT, [facility] #67379, 30, SHAKE LIQUID AND USE 2 SPRAYS [...] 11 Refills, Maintenance, 06/06/23 8:51:00 PM EST, [facility] #85697, Partial fill upon patient request if the [...] 9:14:00 AM EST, Route to Pharmacy Electronically, [facility] #[id number], Partial fill upon patientrequest if the prescription [...] 2 Refills, Maintenance, 05/18/24 9:46:00 AM EST, [facility] #51348, 30, TAKE 2 TABLETS BY MOUTH EVERY [...] 4 Refills, Maintenance, 04/20/24 1:23:00 PM EDT, [facility] #[id number], 155, cm, 04/16/24 13:52:00 EDT, Height, 77.7, [...] 5 Refills, Maintenance, 04/16/24 1:31:00 PM EDT[id number], Partial fill upon patient request if the [...] with multiple / frequent ED visits. 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 Social History Social History Type Response Smoking Status Never smoker entered on: 04/27/15 Sex Female Sex Representation Female (finding) Patient Care team information Care Team Personnel Name: Lucy Palm MD Position: [facility] Physician - Primary Care Member Role: PCP Address: [address] [place] [address] Telecom: Care Team Related Persons Name: KRISTAN YORK Name: NO ONE, NO ONE Name: LISS PACHECO Name: JACKIE NIEVES Insurance Providers Guarantor name: NEETU JOSHI Health Plan Information #: 1 Payer: [employer] [facility] [employer] Member Number: NA Policy Number: NA Group Number: NA
--- OUTSIDE RECORDS SUMMARY | 2024-06-11 09:35 | XMS_ITS | Continuity of Care Document ---
Author Organization [facility] Address [address] [place] [address]- Support Name Relationship Address Phone JACKIE NIEVES [...] Unknown Unav ailable Care Team Providers Care Upholstery Handler Name Role Phone Lucy Palm MD Primary Care Physician [phone] Encounter [facility] Date(s): 04/21/24 - 05/21/24 [facility] [place], [place] [phone] Encounter Type: Triage Allergies, Adverse Reactions, Alerts [...] date 12/31/2011 4Admin Note: VIS GIVEN 02/07/10 divehi 5Result Comment: HEPLISAV- B # 1 Mfd: [employer]. 6Admin Note: vis 7Admin Note: vis given Medications acetaminophen 325 mg oral capsule 2 capsule = 650 mg, By Mouth, 3 times a day, PRN Pain , Mild, LABEL IN BELARUSIAN, # 180 capsule, 4 Refills, Maintenance, 05/21/23 9:38:00 AM EST, Capsule, [facility] #[id number], Partial fill uponpatient request if the prescription [...] Refills, Maintenance, 06/06/23 8:51:00 PM EST, Gel, [facility] #[id number], Partial fill upon patient request if the prescription is for a schedule II opioid drug., 155, cm, 05/21/23 10:02:00 EST, Height, 77.5, kg, 04/02/23 13:59:00 EDT, Dry Weight Start Date: 06/06/23 Status: Ordered Quantity: 100.0 Unit: g Repeat number: 12 estradiol-norethindrone 0.05 mg-0.14 mg/24 hours transdermal film, extended release 1 patch, Topically, Every Saturday and , LABEL IN BELARUSIAN, # 26 patch, 3 Refills, Maintenance, 12/12/23 12:50:00 PM EDT, [facility] #[id number], Partial fill upon patient request if the prescription is for a schedule II opioid drug., 1 patch Topically Every Saturday and ,Instr:LABELIN BELARUSIAN, 155, cm, 11/05/23 11:54:00 EDT, Height, 80, kg, 10/09/23 10:39:00 EDT, Dry Weight Start Date: 12/12/23 Status: Ordered Quantity: 26.0 Unit: patch Repeat number: 4 fluticasone 50 mcg/inh nasal spray See Instructions, SHAKE LIQUID AND USE 2 SPRAYS IN EACH NOSTRIL DAILY, # 16 Gm, 11 Refills, Maintenance, 12/26/23 7:36:00 PM EDT, [facility] #[id number], 30, SHAKE LIQUID AND USE 2 SPRAYS [...] 11 Refills, Maintenance, 06/06/23 8:51:00 PM EST, [facility] #[id number], Partial fill upon patient request if the [...] 9:14:00 AM EST, Route to Pharmacy Electronically, [facility] #[id number], Partial fill upon patientrequest if the prescription [...] 2 Refills, Maintenance, 05/18/24 9:46:00 AM EST, [facility] #57896, 30, TAKE 2 TABLETS BY MOUTH EVERY [...] 4 Refills, Maintenance, 04/20/24 1:23:00 PM EDT, [facility] #[id number], 155, cm, 04/16/24 13:52:00 EDT, Height, 77.7, [...] 5 Refills, Maintenance, 04/16/24 1:31:00 PM EDT, [email or web address] #29401, Partial fill upon patient request if the [...] multiple / frequent ED visits. 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 Social History Social History Type Response Smoking Status Never smoker entered on: 04/27/15 Sex Female Sex Representation Female (finding) Patient Care team information Care Team Personnel Name: Lucy Palm MD Position: [facility] Physician - Primary Care Member Role: PCP Address: [address] [place] [address] Telecom: Care Team Related Persons Name: KRISTAN YORK Name: NO ONE, NO ONE Name: LISS PACHECO Name: JACKIE NIEVES Insurance Providers Guarantor name: NEETU JOSHI Health Plan Information #: 1 Payer: [employer] [facility] [employer] Member Number: NA Policy Number: NA Group Number: NA
--- NOTE | 2024-06-11 09:49 | MHC.OFFVIS ---
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 Required: No Accompanied by: Self / Same As Patient Allergies Penicillins Allergy (Mild, Verified 06/11/24 09:54) rash Medication List - Last Reconciled 06/15/24 by Gabby Marques MD clindamycin phosphate 1% topical QAM cyclobenzaprine 5 mg PO BEDTIME duloxetine 60 mg PO DAILY fluticasone propionate 50 mcg/actuation sprays intranasal fremanezumab-vfrm (Ajovy) 675 mg (4.5 mL) subcut [id number] gabapentin 600 mg PO BID lidocaine 5% 1 patch topical magnesium oxide 400 mg PO DAILY minocycline 100 mg PO Q12H omeprazole 20 mg PO DAILY onabotulinumtoxinA (Botox) to be injected to scalp and neck muscles by physician Q 3 mths; riboflavin (vitamin B2) 400 mg (4 x 100 mg) PO DAILY rizatriptan take 1 tablet at onset of headache; if no relief, may repeat 1 tablet after at least 2 hrs PO sumatriptan succinate take 1 tab at onset of headache; if no relief may repeat 1 tab after at least 2 hrs; max = 4 tabs/24 hr PO topiramate 25 mg PO BID venlafaxine ER 75 mg PO DAILY Do you need a note to return to daycare/school/sports/work: No HPI Comments Details: ? 53y/o female comes for treatment of migraines with botox.she has 2 headaches days a week .Prior to botox and ajovy she had daily headaches ??? Most frequent reported adverse reactions following injection of botox for chronic migraine include neck pain (9%), headache(5%), eyelid ptosis(4%), migraine(4%), muscular weakness(4%), musculuskeletal stiffness(4%), bronchitis(3%), injection site pain (3%), musculoskeletal pain(3%), myalgia(3%), facial paresis(2%), HTN(2%) and muscle spasms(2%) were discussed in detail. ??? Botulinum toxin typeA 200units Lot no [id number] expiration Mar 2026 was diluted with 4 cc of normal saline . ??? Muscles injected- ??? Frontalis 4 sites ??? Procerus 1 site ??? Portable Track Line Marker- 2 sites ??? Temporalis- 8 sites ??? Occipitalis- 6 sites ??? Cervical paraspinals- 4 sites ??? Trapezius- 6 sites- 10 units each ??? 5 units each in 31 site ??? Total use- 185units ??? Discarded-15units she is doing better since she started on ajovy 8 mths ago Q [facility] Medical History Chronic migraine without aura Back pain Neck pain Anxiety Depression No pertinent family history Surgical History No pertinent past surgical history Family History Father HTN (hypertension) Paternal Grandmother Diabetes Mother Diabetes Social History Alcohol intake: current Alcohol intake frequency: holidays/special occasions only Patient Tobacco Use Status: Never used Tobacco Review of Systems ENT Reports Normal hearing present Neuro Reports Normal hearing present Physical Exam Vital Signs: Last Vital Signs Pulse 59 06/11/24 09:50 BP 115/80 06/11/24 09:50 Pulse Ox 97 06/11/24 09:50 Oxygen Delivery Method Room Air 06/11/24 09:50 BMI result Body Mass Index 30.5 Const General: cooperative and healthy appearing Nutritional Appearance: obese Orientation/consciousness: patient oriented x3 Limitations: no limitations Resp Effort & Inspection: normal respiratory effort and able to speak in complete sentences Neuro General: patient oriented x3 Cranial nerves: Yes Normal hearing present Cognition (Neuro): normal cognition Gait exam (Neuro): Normal gait present Office Procedures Botulinum toxin Injection 38090 - Migraine Procedure code (CPT) selection complete Office Meds onabotulinumtoxinA 200 unit solution for injection Performing Provider: Gabby Marques MD [place] [facility] Administered by: Gabby Marques MD on 06/15/24 15:56 Dose Route Admin Location Dispensed Lot Number Expiration Date [employer]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 unit subcut 200 units [id number] ALLERGAN/BOTOX Comments: see HPI Assessment & Plan Assessment & Plan (1) Chronic migraine without aura: Code(s): G43.709 - Chronic migraine without aura, not intractable, without status migrainosus Category: Medical Qualifiers: Intractability: intractable Status migrainosus presence: without status migrainosus Qualified Code(s): G43.719 - Chronic migraine without aura, intractable, without status migrainosus (2) Cervical spondylosis: Code(s): M47.812 - Spondylosis without myelopathy or radiculopathy, cervical region Category: Medical Plan Patient tolerated the procedure well she will call with any side effect Continue AJOVY 225 mg sQX3( total 675 mg ) q 3mths Botox in 4 mths as she has been doing well on Ajovy Orders: Orders AMB Botulinum toxin Injection 06/11/24 G43.719 - Chronic migraine without aura, intractable, without status migrainosus Medications: New onabotulinumtoxinA 200 units subcut ONCE 1 ea 0RF migraine G43.719 - Chronic migraine without aura, intractable, without status migrainosus Coding Level of Care Code Est Pt Level 1 (96446) Diagnoses Intractable chronic migraine without aura and without status migrainosus G43.719 Intractability: intractable Status migrainosus presence: without status migrainosus Cervical spondylosis M47.812 CPT Codes Botox Injection - Botox 3: 86017 - Migraine ([id number])
[2024-06-11 09:50] VITALS: BP 115/80; PULSE 59; O2SAT 97; BMI 30.5
== END 2024-06-11 10:25 | disposition home or self-care (01) ==
PROVIDERS: PCP Internal Medicine; Visit Provider Psychiatry & Neurology Neurology
DX: G43.719 Chronic migraine without aura, intractable, without status migrainosus (principal)
CPT/HCPCS: 64615

== ENCOUNTER → 2024-06-11 09:29 | Outpatient (BNVA) | payer OTHER, SELFPAY | PROVIDERS: PCP Internal Medicine; Visit Provider Psychiatry & Neurology Neurology | DX: G43.719 Chronic migraine without aura, intractable, without status migrainosus (principal); M47.812 Spondylosis without myelopathy or radiculopathy, cervical region | CPT/HCPCS: 64615; 99211; J0585 ==

== ENCOUNTER 2024-08-24 12:29 | Outpatient (AMB) | payer OTHER, SELFPAY ==
--- NOTE | 2024-08-24 12:32 | A.OFFVIS_ITS ---
Vital Signs 08/24/24 12:33 Height 5 ft 1 in Weight 161 lb BMI 30.4 BP 102/70 Blood Pressure Location Rt brachial Position Sitting Pulse 67 Pulse Source Pulse Oximeter Pulse Oximetry (%) 98 Oxygen Delivery Method Room Air Intake Visit Reasons: LVM TO R/S-New problem Insomnia/Snoring Intake Note: patient presents for New problem snoring/insomnia Allergies Penicillins Allergy (Mild, Verified 08/24/24 12:35) rash Medication List - Last Reconciled 08/24/24 by Gabby Marques MD clindamycin phosphate 1% topical QAM cyclobenzaprine 5 mg PO BEDTIME duloxetine 60 mg PO DAILY fluticasone propionate 50 mcg/actuation sprays intranasal fremanezumab-vfrm (Ajovy) 675 mg (4.5 mL) subcut [id number] gabapentin 600 mg PO BID lidocaine 5% 1 patch topical minocycline 100 mg PO Q12H onabotulinumtoxinA (Botox) to be injected to scalp and neck muscles by physician Q 3 mths; riboflavin (vitamin B2) 400 mg (4 x 100 mg) PO DAILY sumatriptan succinate take 1 tab at onset of headache; if no relief may repeat 1 tab after at least 2 hrs; max = 4 tabs/24 hr PO topiramate 25 mg PO BID venlafaxine ER 75 mg PO DAILY HPI Comments Details: 54y/o comes for sleep evaluation .she has chronic migraines treated with botox. Main complaints-insomnia for 2-3 years Sleep questionnaire- Difficulty falling sqloun-[id number] minutes Difficulty staying asleep-yes Number of lbioqgnz-1-5 Snoring-yes Witnessed apneas-no Gasping arousals-yes Nocturia-yes GERD-no Vivid dreams-no Acting out dreams -no Abnormal behavior in sleep-no ABnormal movements in sleep-no Morning headaches-yes Excessive daytime sleepiness-yes Daytime naps- yes restless legs- yes Hallucinations- no sleep paralysis-no Drop attacks- no Sleep study-yes Sleep Hygiene- Sleep time- 10pm Wake time -6am coffee/stimulant use - occasional Phone Electronics use-no Exercise- no Bedroom comfort- yes PFSH Medical History Chronic migraine without aura Back pain Neck pain Anxiety Depression No pertinent family history Surgical History No pertinent past surgical history Family History Father HTN (hypertension) Paternal Grandmother Diabetes Mother Diabetes Social History Alcohol intake: current Alcohol intake frequency: holidays/special occasions only Patient Tobacco Use Status: Never used Tobacco Review of Systems ENT Reports Normal hearing present Neuro Reports Normal hearing present Physical Exam Vital Signs: Last Vital Signs Pulse 67 08/24/24 12:33 BP 102/70 08/24/24 12:33 Pulse Ox 98 08/24/24 12:33 Oxygen Delivery Method Room Air 08/24/24 12:33 BMI result Body Mass Index 30.4 Const General: cooperative and healthy appearing Nutritional Appearance: obese Orientation/consciousness: patient oriented x3 Limitations: no limitations Resp Effort & Inspection: normal respiratory effort and able to speak in complete sentences Neuro General: patient oriented x3 Cranial nerves: Yes Normal hearing present Cognition (Neuro): normal cognition Gait exam (Neuro): Normal gait present Assessment & Plan Assessment & Plan (1) Insomnia: Code(s): G47.00 - Insomnia, unspecified Category: Medical Qualifiers: Insomnia type: unspecified Qualified Code(s): G47.00 - Insomnia, unspe cified (2) Hypersomnia: Code(s): G47.10 - Hypersomnia, unspecified Category: Medical Plan Home sleep study to r/o sleep apnea will consider psychology ref for CBT discussed sleep hygiene. Orders: Orders RT home sleep study Today F41.9 - Anxiety disorder, unspecified, G47.00 - Insomnia, unspecified, G47.10 - Hypersomnia, unspecified, M54.2 - Cervicalgia Coding Level of Care Code Est Pt Level 4 (34342) Diagnoses Insomnia, unspecified type G47.00 Insomnia type: unspecified Hypersomnia G47.10
[2024-08-24 12:33] VITALS: BP 102/70; PULSE 67; O2SAT 98; BMI 30.4
--- OUTSIDE RECORDS SUMMARY | 2024-08-24 14:12 | XMS_ITS | Clinical Summary ---
Author Organization [facility] Address [address] [place] [address] Care Team Providers Care Power Line Installer Name Role Phone Unavailable Primary Care Provider Unavailabl e Social History Tobacco Use Types Packs/Day Years Used Date Smoking Tobacco: Never Assessed Comments Unknown Sex and Gender Information Value Date Recorded Sex Assigned at Not on file Legal Sex Female 7:05 AM EST Gender Identity Not on file Sexual Orientation Not on file Plan of Treatment Health Maintenance Due Date Last Done Comments Breast Cancer Screening 1972 DTaP,Tdap,and Td Vaccines (1 - Tdap) 1991 Hepatitis B Vaccines (1 of 3 - 19+ 3-dose series) 1991 Cervical Cancer Screening: P ap Smear 1993 Colorectal Cancer Screening: Colonoscopy 06/03/2022 Depression Screening 06/03/2022 HIV Screening 06/03/2022 Hepatitis C Screening 06/03/2022 Social Influencers of Health Screening 06/03/2022 Pneumococcal Vaccine: 50+ Ye ars (1 of 1 - PCV) 2022 Zoster Vaccines (1 of 2) 2022 COVID-19 Vaccine ( - 2023-2 5 season) 2024 Influenza Vaccine (#1) 2024 HIB Vaccines Aged Out No longer eligi ble based on patient's age to complete this topic HPV Vaccines Aged Out No longer eligi ble based on patient's age to complete this topic Hepatitis A Vaccines Aged Out No long er eligible based on patient's age to complete this topic IPV Vaccines Aged Out No longer eligi ble based on patient's age to complete this topic MMR Vaccines Aged Out No longer eligi ble based on patient's age to complete this topic Meningococcal ACWY Vaccine Aged Out N o longer eligible based on patient's age to complete this topic Meningococcal B Vacine Aged Out No lo nger eligible based on patient's age to complete this topic Pneumococcal Vaccine: Pediat rics (0 to 5 Years) and At-Risk Patients (6 to 64 Years) Aged Out No longer eligible b ased on patient's age to complete this topic RSV Immunization Patients Un maribel 20 months Aged Out No longer eligible b ased on patient's age to complete this topic Varicella Vaccines Aged Out No longer eligible based on patient's age to complete this topic
== END 2024-08-24 13:01 | disposition home or self-care (01) ==
PROVIDERS: PCP Internal Medicine; Visit Provider Psychiatry & Neurology Neurology
DX: G47.00 Insomnia, unspecified (principal); G47.10 Hypersomnia, unspecified
CPT/HCPCS: 99214

== ENCOUNTER → 2024-08-24 12:29 | Outpatient (BNVA) | payer OTHER, SELFPAY | PROVIDERS: PCP Internal Medicine; Visit Provider Psychiatry & Neurology Neurology | DX: G47.00 Insomnia, unspecified (principal); G47.10 Hypersomnia, unspecified | CPT/HCPCS: 99212 ==

== ENCOUNTER 2024-09-15 09:43 | Outpatient (AMB) | payer OTHER, SELFPAY ==
--- NOTE | 2024-09-15 09:45 | A.OFFVIS_ITS ---
Vital Signs 09/15/24 09:46 Height 5 ft 1 in Weight 157 lb BMI 29.7 BP 114/82 Blood Pressure Location Rt brachial Position Sitting Pulse 51 Pulse Source Pulse Oximeter Pulse Oximetry (%) 100 Oxygen Delivery Method Room Air Intake Visit Reasons: BOTOX Intake Note: Patient presents for botox injection Practice supplied Allergies Penicillins Allergy (Mild, Verified 09/15/24 09:50) rash Medication List - Last Reconciled 09/15/24 by Gabby Marques MD clindamycin phosphate 1% topical QAM cyclobenzaprine 5 mg PO BEDTIME duloxetine 60 mg PO DAILY fluticasone propionate 50 mcg/actuation sprays intranasal fremanezumab-vfrm (Ajovy) 675 mg (4.5 mL) subcut [id number] gabapentin 600 mg PO BID lidocaine 5% 1 patch topical minocycline 100 mg PO Q12H onabotulinumtoxinA (Botox) to be injected to scalp and neck muscles by physician Q 3 mths; riboflavin (vitamin B2) 400 mg (4 x 100 mg) PO DAILY sumatriptan succinate take 1 tab at onset of headache; if no relief may repeat 1 tab after at least 2 hrs; max = 4 tabs/24 hr PO topiramate 25 mg PO BID venlafaxine ER 75 mg PO DAILY HPI Comments Details: ? 54y/o female comes for treatment of migraines with botox.she has 2 headaches days a week .Prior to botox and ajovy she had daily headaches ??? Most frequent reported adverse reactions following injection of botox for chronic migraine include neck pain (9%), headache(5%), eyelid ptosis(4%), migraine(4%), muscular weakness(4%), musculuskeletal stiffness(4%), bronchitis(3%), injection site pain (3%), musculoskeletal pain(3%), myalgia(3%), facial paresis(2%), HTN(2%) and muscle spasms(2%) were discussed in detail. ??? Botulinum toxin typeA 200units Lot no [id number] expiration September 2026 was diluted with 4 cc of normal saline . ??? Muscles injected- ??? Frontalis 4 sites ??? Procerus 1 site ??? Director Federal- 2 sites ??? Temporalis- 8 sites ??? Occipitalis- 6 sites ??? Cervical paraspinals- 4 sites ??? Trapezius- 6 sites- 10 units each ??? 5 units each in 31 site ??? Total use- 185units ??? Discarded-15units she is doing better since she started on ajovy 8 mths ago Q [facility] Medical History Insomnia Hypersomnia Chronic migraine without aura Back pain Neck pain Anxiety Depression No pertinent family history Surgical History No pertinent past surgical history Family History Father HTN (hypertension) Paternal Grandmother Diabetes Mother Diabetes Social History Alcohol intake: current Alcohol intake frequency: holidays/special occasions only Patient Tobacco Use Status: Never used Tobacco Review of Systems ENT Reports Normal hearing present Neuro Reports Normal hearing present Physical Exam Vital Signs: Last Vital Signs Pulse 51 09/15/24 09:46 BP 114/82 09/15/24 09:46 Pulse Ox 100 09/15/24 09:46 Oxygen Delivery Method Room Air 09/15/24 09:46 BMI result Body Mass Index 29.7 Const General: cooperative and healthy appearing Nutritional Appearance: obese Orientation/consciousness: patient oriented x3 Limitations: no limitations Resp Effort & Inspection: normal respiratory effort and able to speak in complete sentences Neuro General: patient oriented x3 Cranial nerves: Yes Normal hearing present Cognition (Neuro): normal cognition Gait exam (Neuro): Normal gait present Office Procedures Botulinum toxin Injection 76018 - Migraine Procedure code (CPT) selection complete Office Meds onabotulinumtoxinA 200 unit solution for injection Performing Provider: Gabby Marques MD Performing Location: [facility] [place] [facility] Administered by: Gabby Marques MD on 09/15/24 10:14 Dose Route Admin Location Dispensed Lot Number Expiration Date [facility] Carroting Machine Offbearer 185 unit subcut 200 units [id number] ALLERGAN/BOTOX Comments: see HPI Assessment & Plan Assessment & Plan (1) Chronic migraine without aura: Code(s): G43.709 - Chronic migraine without aura, not intractable, without status migrainosus Category: Medical Qualifiers: Status migrainosus presence: without status migrainosus Intractability: intractable Qualified Code(s): G43.719 - Chronic migraine without aura, intractable, without status migrainosus (2) Cervical spondylosis: Code(s): M47.812 - Spondylosis without myelopathy or radiculopathy, cervical region Category: Medical Plan Patient tolerated the procedure well she will call with any side effect Continue AJOVY 225 mg sQX3( total 675 mg ) q 3mths Botox in 4 mths as she has been doing well on Ajovy Orders: Orders AMB Botulinum toxin Injection Today G43.719 - Chronic migraine without aura, intractable, without status migrainosus Medications: New onabotulinumtoxinA 200 units subcut ONCE 1 ea 0RF Migraine G43.719 - Chronic migraine without aura, intractable, without status migrainosus Coding Level of Care Code Est Pt Level 1 (52294) Diagnoses Intractable chronic migraine without aura and without status migrainosus G43.719 Status migrainosus presence: without status migrainosus Intractability: intractable Cervical spondylosis M47.812 CPT Codes Botox Injection - Botox 3: 62742 - Migraine ([id number])
[2024-09-15 09:46] VITALS: BP 114/82; PULSE 51; O2SAT 100; BMI 29.7
== END 2024-09-15 10:13 | disposition home or self-care (01) ==
LOC: HO.HSMS 09:43
PROVIDERS: PCP Internal Medicine; Visit Provider Psychiatry & Neurology Neurology
DX: G43.719 Chronic migraine without aura, intractable, without status migrainosus (principal)
CPT/HCPCS: 64615

== ENCOUNTER → 2024-09-15 09:43 | Outpatient (BNVA) | payer OTHER, SELFPAY | PROVIDERS: PCP Internal Medicine; Visit Provider Psychiatry & Neurology Neurology | DX: G43.719 Chronic migraine without aura, intractable, without status migrainosus (principal); M47.812 Spondylosis without myelopathy or radiculopathy, cervical region | CPT/HCPCS: 64615; 99211; J0585 ==

== ENCOUNTER → 2024-11-04 09:23 | Outpatient (REF) | payer OTHER, SELFPAY ==
--- OUTSIDE RECORDS SUMMARY | 2024-11-04 10:09 | XMS_ITS | Clinical Summary ---
Author Organization [facility] ity Address [address] [place] [address] Care Team Providers Care Miller Head Assistant Wet Process Name Role Phone Unavailable Primary Care Provider [...] - 2023-2 5 season) 2024 Influenza Vaccine (Season Ended) 2025 HIB Vaccines Aged Out No longer eligi [...] age to complete this topic Meningococcal B Vaccine Aged Out No l onger eligible based on patient's age to complete [...]
== END ==
LOC: HO.SL 09:23
PROVIDERS: PCP Registered Nurse Community Health; Visit Provider Psychiatry & Neurology Neurology
DX: G47.10 Hypersomnia, unspecified (principal); M54.2 Cervicalgia; F41.9 Anxiety disorder, unspecified; G47.00 Insomnia, unspecified
CPT/HCPCS: 95806

== ENCOUNTER → 2024-11-04 09:33 | Outpatient (BNV) | payer OTHER, SELFPAY | PROVIDERS: PCP Registered Nurse Community Health; Visit Provider Psychiatry & Neurology Neurology | DX: R06.83 Snoring (principal) | CPT/HCPCS: 95806 ==

== ENCOUNTER 2024-12-29 13:54 | Outpatient (AMB) | payer OTHER, SELFPAY ==
--- NOTE | 2024-12-29 13:58 | MHC.OFFVIS ---
Vital Signs 12/29/24 13:59 Height 5 ft 1 in Weight 157 lb BMI 29.7 BP 112/72 Blood Pressure Location Rt brachial Position Sitting Pulse Oximetry (%) 98 Oxygen Delivery Method Room Air Intake Visit Reasons: Botox Intake Note: Patient presents for botox injection practice supplied Allergies Penicillins Allergy (Mild, Verified 09/15/24 09:50) rash Medication List - Last Reconciled 12/29/24 by Gabby Marques MD clindamycin phosphate 1% topical QAM cyclobenzaprine 5 mg PO BEDTIME duloxetine 60 mg PO DAILY fluticasone propionate 50 mcg/actuation sprays intranasal fremanezumab-vfrm (Ajovy) 675 mg (4.5 mL) subcut [id number] gabapentin 600 mg PO BID lidocaine 5% 1 patch topical minocycline 100 mg PO Q12H onabotulinumtoxinA (Botox) to be injected to scalp and neck muscles by physician Q 3 mths; riboflavin (vitamin B2) 400 mg (4 x 100 mg) PO DAILY sumatriptan succinate take 1 tab at onset of headache; if no relief may repeat 1 tab after at least 2 hrs; max = 4 tabs/24 hr PO topiramate 25 mg PO BID venlafaxine ER 75 mg PO DAILY HPI Comments Details: ? 54y/o female comes for treatment of migraines with botox.she has 2 headaches days a week .Prior to botox and ajovy she had daily headaches ??? Most frequent reported adverse reactions following injection of botox for chronic migraine include neck pain (9%), headache(5%), eyelid ptosis(4%), migraine(4%), muscular weakness(4%), musculuskeletal stiffness(4%), bronchitis(3%), injection site pain (3%), musculoskeletal pain(3%), myalgia(3%), facial paresis(2%), HTN(2%) and muscle spasms(2%) were discussed in detail. ??? Botulinum toxin typeA 200units Lot no [id number] expiration Mar 2027 was diluted with 4 cc of normal saline . ??? Muscles injected- ??? Frontalis 4 sites ??? Procerus 1 site ??? Manager Access- 2 sites ??? Temporalis- 8 sites ??? Occipitalis- 6 sites ??? Cervical paraspinals- 4 sites ??? Trapezius- 6 sites- 10 units each ??? 5 units each in 31 site ??? Total use- 185units ??? Discarded-15units she is doing better since she started on ajovy 8 mths ago Q [facility] Medical History Insomnia Hypersomnia Chronic migraine without aura Back pain Neck pain Anxiety Depression No pertinent family history Surgical History No pertinent past surgical history Family History Father HTN (hypertension) Paternal Grandmother Diabetes Mother Diabetes Social History Alcohol intake: current Alcohol intake frequency: holidays/special occasions only Patient Tobacco Use Status: Never used Tobacco Review of Systems ENT Reports Normal hearing present Neuro Reports Normal hearing present Physical Exam Vital Signs: Last Vital Signs BP 112/72 12/29/24 13:59 Pulse Ox 98 12/29/24 13:59 Oxygen Delivery Method Room Air 12/29/24 13:59 BMI result Body Mass Index 29.7 Const General: cooperative and healthy appearing Nutritional Appearance: obese Orientation/consciousness: patient oriented x3 Limitations: no limitations Resp Effort & Inspection: normal respiratory effort and able to speak in complete sentences Neuro General: patient oriented x3 Cranial nerves: Yes Normal hearing present Cognition (Neuro): normal cognition Gait exam (Neuro): Normal gait present Office Procedures Botulinum toxin Injection 69282 - Migraine Procedure code (CPT) selection complete Office Meds onabotulinumtoxinA 200 unit solution for injection Performing Provider: Gabby Marques MD [place]forming [place] [facility] [place] [facility] Administered by: Gabby Marques MD on 12/29/24 15:13 Dose Route Admin Location Dispensed Lot Number Expiration Date [facility] Dispatch Clerk 185 unit subcut 200 units [id number] ALLERGAN/BOTOX Total Dispensed Waste 200 units 7.5 % Comments: see HPI Assessment & Plan Assessment & Plan (1) Chronic migraine without aura: Code(s): G43.709 - Chronic migraine without aura, not intractable, without status migrainosus Category: Medical Qualifiers: Status migrainosus presence: without status migrainosus Intractability: intractable Qualified Code(s): G43.719 - Chronic migraine without aura, intractable, without status migrainosus (2) Cervical spondylosis: Code(s): M47.812 - Spondylosis without myelopathy or radiculopathy, cervical region Category: Medical Plan Patient tolerated the procedure well she will call with any side effect Continue AJOVY 225 mg sQX3( total 675 mg ) q 3mths Orders: Orders AMB Botulinum toxin Injection Today G43.719 - Chronic migraine without aura, intractable, without status migrainosus Coding Level of Care Code Est Pt Level 1 (64750) Diagnoses Intractable chronic migraine without aura and without status migrainosus G43.719 Status migrainosus presence: without status migrainosus Intractability: intractable Cervical spondylosis M47.812 CPT Codes Botox Injection - Botox 3: 92379 - Migraine ([id number])
[2024-12-29 13:59] VITALS: BP 112/72; O2SAT 98; BMI 29.7
--- OUTSIDE RECORDS SUMMARY | 2024-12-29 15:06 | XMS_ITS | Clinical Summary ---
Author Organization [facility] ity Address [address] [place] [address] Care Team Providers Care Veneer Jointer Name Role Phone Unavailable Primary Care Provider [...] 2023-2 5 season) 2024 Influenza Vaccine (#1) 2025 HIB Vaccines Aged Out No longer [...]
== END 2024-12-29 14:23 | disposition home or self-care (01) ==
LOC: HO.HSMS 13:54
PROVIDERS: PCP Registered Nurse Community Health; Visit Provider Psychiatry & Neurology Neurology
DX: G43.719 Chronic migraine without aura, intractable, without status migrainosus (principal)
CPT/HCPCS: 64615

== ENCOUNTER → 2024-12-29 13:54 | Outpatient (BNVA) | payer OTHER, SELFPAY | PROVIDERS: PCP Registered Nurse Community Health; Visit Provider Psychiatry & Neurology Neurology | DX: G43.719 Chronic migraine without aura, intractable, without status migrainosus (principal); M47.812 Spondylosis without myelopathy or radiculopathy, cervical region; G47.00 Insomnia, unspecified; M54.9 Dorsalgia, unspecified; M54.2 Cervicalgia; F41.9 Anxiety disorder, unspecified; F32.A Depression, unspecified | CPT/HCPCS: 64615; 99211; J0585 ==

== ENCOUNTER 2025-02-16 09:08 | Outpatient (AMB) | payer OTHER, SELFPAY ==
[2025-02-16 09:17] VITALS: BP 112/78; PULSE 54; O2SAT 100; BMI 30.2
--- NOTE | 2025-02-16 09:17 | A.OFFVIS_ITS ---
Vital Signs 02/16/25 09:17 Height 5 ft 1 in Weight 160 lb BMI 30.2 BP 112/78 Blood Pressure Location Lt brachial Position Sitting Pulse 54 Pulse Source Pulse Oximeter Pulse Oximetry (%) 100 Oxygen Delivery Method Room Air Intake Visit Reasons: Follow up Intake Note: Patient presents follow up for migraines. Allergies Penicillins Allergy (Mild, Verified 02/16/25 09:34) rash Medication List - Last Reconciled 02/16/25 by MIKE Urena clindamycin phosphate 1% topical QAM cyclobenzaprine 5 mg PO BEDTIME duloxetine 60 mg PO DAILY fluticasone propionate 50 mcg/actuation sprays intranasal fremanezumab-vfrm (Ajovy) 675 mg (4.5 mL) subcut [id number] gabapentin 600 mg PO BID lidocaine 5% 1 patch topical minocycline 100 mg PO Q12H onabotulinumtoxinA (Botox) to be injected to scalp and neck muscles by physician Q 3 mths; riboflavin (vitamin B2) 400 mg (4 x 100 mg) PO DAILY sumatriptan succinate take 1 tab at onset of headache; if no relief may repeat 1 tab after at least 2 hrs; max = 4 tabs/24 hr PO topiramate 25 mg PO BID venlafaxine ER 75 mg PO DAILY HPI Comments Details: History of Present Illness The patient is a 54-year-old female presenting with chronic migraines to discuss treatment options for optimizing her CM treatment regimen. The patient was previously seen by Dr. Gabby Marques in December 2024. She reports experiencing headaches for over 20 years, with no specific inciting incident or injury. The headaches occur randomly, with the patient sometimes waking up with pain or having the onset later in the day. The headaches can reach a severity of 10/10. Associated symptoms include experiencing auras in the form of black spots and blurry vision, as well as photophobia, phonosensitivity, and sensitivity to certain smells, sometimes accompanied by dizziness and off-balance sensation. Each headache episode can last hours and requires medication and rest to alleviate the symptoms. Unfortunately, the patient reports her current treatment, including Botox, Ajovy, venlafaxine, gabapentin, and sumatriptan 50mg, has not fully managed her symptoms. Social History - Not currently employed - Not sexually active for five to six years due to personal reasons - Tries to avoid heavy lifting due to back pain - Avoids strong-smelling foods due to headache sensitivity - No known substance use disclosed Review of Systems - Neurological: Reports headaches, dizziness, and blurry vision. Denies frequent nausea or vomiting. - Respiratory: Reports chest congestion related to previous bronchitis. - Gastrointestinal: Denies consistent nausea and vomiting. - Others: Reports fragmented sleep, snoring, hypersomnia. Headache questionnaire:? Age/time of onset: 20 yrs Preceding causes: No known causes Previous work-up: * 2022 C-spine- C5-C6 and C6-C7 there are shallow posterior disc protrusions without cord compression or central stenosis. The neural foramina are patent. C4-C5 there is mild right facet arthropathy. There is a shallow posterior disc protrusion without cord compression or central stenosis. * 11/04/2024 HST: Inconclusive, with AHI less than once an hour and O2 jason 84% Types of headache disorders: 1 Family history: Father has headache, Dtr has migraine Typical headache characteristics: Prodrome symptoms: Denies Aura: Black spots before onset of the headache Pain intensity: 101/0 Location, quality, characteristics: Varies, can come on suddenly as either right or left sided, back of head or holocranial, stabbing pains Associated symptoms: blurry vision, photophobia, phonophobia, osmophobia, at times nausea, not right in space dizziness, fatigue, cognitive difficulties, ac tivity intolerance. Postdrome: lingering symptoms Triggers: None. Tries to avoid strong smells. Avoids heavy lifting due to her back issues. Time of day: No pattern. May wake up with a headache or can have a headache at the end of the day. Duration and Frequency: Almost daily headache- lasting hours Headache impact on patient's quality of life: Has to lay down. Talked about including Botox, Ajovy, gabapentin Current acute medication use/interventions: Sumatriptan Current preventative medication use: Gabapentin 600mg bid- possibly causing swelling, Botox every 3 months, Ajovy 225mg monthly, Riboflavin, Venlafaxine ER 75mg- for mood, Topiramate 25mg bid. Not currently taking Magnesium- d/t pill burden Current non-pharmacological interventions: resting in a dark quiet place, applies ice [facility] Medical History Insomnia Hypersomnia Chronic migraine without aura Back pain Neck pain Anxiety Depression No pertinent family history Surgical History No pertinent past surgical history Family History Father HTN (hypertension) Paternal Grandmother Diabetes Mother Diabetes Social History Alcohol intake: current Alcohol intake frequency: holidays/special occasions only Patient Tobacco Use Status: Never used Tobacco Physical Exam Vital Signs: Last Vital Signs Pulse 54 02/16/25 09:17 BP 112/78 02/16/25 09:17 Pulse Ox 100 02/16/25 09:17 Oxygen Delivery Method Room Air 02/16/25 09:17 BMI result Body Mass Index 30.2 Const General: cooperative and no acute distress Orientation/consciousness: patient oriented x3 Resp Effort & Inspection: normal respiratory effort and able to speak in complete sentences Neuro General: patient oriented x3 Cranial nerves: Yes CN's II-XII intact bilaterally Cognition (Neuro): normal cognition Psych Appearance: grossly normal Mental Status: mental status grossly normal Speech and movement: Normal speech and movement present Affect: normal affect Attitude: cooperative Assessment & Plan Assessment & Plan (1) Hypersomnia: Code(s): G47.10 - Hypersomnia, unspecified Category: Medical Plan Discussion Notes During the consultation, I discussed with the patient that migraine is often a genetic condition and managing it involves understanding and minimizing triggers where possible. I acknowledged the patient's struggle with ineffective treatment and explained the importance of addressing headaches at the onset by potentially increasing the dose of sumatriptan to 100 mg. We considered the option of using naproxen alongside sumatriptan to better manage the headaches if needed. The potential side effects of increased sumatriptan dosing were reviewed, emphasizing the importance of this approach. We considered a more detailed in- lab sleep study to support understanding of sleep patterns and their impact on migraines. I also explained the risks and safety of medications like sumatriptan, noting alternatives if adverse effects occur. Patient was informed and verbally consented to the use of an ambient scribe for clinic note documentation during this visit. Plan and patient instructions: You are advised to undergo: In-lab sleep study to further assess for sleep apnea or periodic limb movement of sleep For overall headache management: * Optimize good self-care, including but not limited to maintaining a healthy diet, adequate fluid intake, adequate sleep, and engaging in regular physical activity. * Track headaches and both positive and negative effects of your headache treatment trials, especially after any treatment regimen changes. * [employer] is one of many headache tracking apps. * A simple paper calendar is also a good option. * Non-pharmacological interventions which may help to alleviate your headache attack frequency, severity, and associated symptoms: For light sensitivity: You may benefit from trying blue light filtering glasses, FL-41 blue light filter in glasses, green glasses, green light therapy. Avoid wearing traditional sunglasses inside. For sound sensitivity: You may benefit from trying noise cancellation ear plugs. Neuromodulation devices, which can be used alone or with pharmacological treatment. For acute (as needed) headache treatment: It is important to take acute medications at the first sign of headache. However, please be aware that frequently using most acute medications may increase the frequency of your headache attacks, as well as make your other treatments less effective.. * Increase Sumatriptan from 50 mg to 100mg tab: * Take 1/2 - 1 tab (50-100mg) at onset of headache, may repeat in 2 hours. Max of 2 tabs (200mg) per 24 hours. * May take sumatriptan with OTC Tylenol 650-1,000mg every 4-6 hours, Ibuprofen (liquid gels) 600mg every 6 hours, or Naproxen (liquid gels) 440mg q 12 hrs prn. * Potential adverse effects of triptans, include but are not limited to nausea, fatigue, chest tightness/tingling (usually passes within a few mi nutes), medication overuse headaches. * Start naproxen 440 mg every 12 hours as needed * Previous acute migraine medication trials: None other * Acute migraine medication contraindications: None at this time For chronic migraine headache prevention medication: Preventative medications should be taken routinely as prescribed for best effect, it may take several weeks for full effect to take effect. * Continue Riboflavin 400mg daily in the morning * May continue to hold magnesium at this time- due to pill burden * Continue topiramate 25 mg twice a day * Continue venlafaxine ER 75 mg daily * Continue gabapentin 600 mg twice a day * Continue Ajovy 225 mg subcutaneous injection once monthly * Continue Botox 155 units IM every 12 weeks * Previous migraine prevention medication trials: None other * Migraine prevention medication contraindications: None at this time If you have not yet, we encourage you to enroll in the [facility] patient portal. We will follow-up upon review of above and with a follow-up clinic visit in 3-6 months or sooner as needed. Orders: Orders RT PSG in-lab sleep study 02/16/25 G47.10 - Hypersomnia, unspecified, R06.83 - Snoring, G47.9 - Sleep disorder, unspecified Medications: New sumatriptan succinate 50 - 100 mg orally at onset of headache, may repeat in 2 hrs PRN; max 2 tabs per day or 6 tabs/week (may take with Naproxen) 14 tabs 6RF migraine headache 30 days naproxen sodium (Aleve) take w/ food, may take with sumatriptan 440 mg (2 x 220 mg) PO Q12H PRN 30 caps 3RF migraine headache 30 days Discontinued sumatriptan succinate Discontinued Reason: Doctor's Order take 1 tab at onset of headache; if no relief may repeat 1 tab after at least 2 hrs; max = 4 tabs/24 hr PO 14 tabs 3RF Coding Level of Care Code Est Pt Level 4 (92905) Diagnoses Hypersomnia G47.10
--- OUTSIDE RECORDS SUMMARY | 2025-02-16 10:03 | XMS_ITS | Clinical Summary ---
Author Organization [employer] [facility] ity Address [address] [place] [address] Care Team Providers Care Hr Advisor Name Role Phone Unavailable Primary Care Provider [...] Smear 1993 Colorectal Cancer Screening: Colonoscopy 06/03/2022 HIV Screening 06/03/2022 Hepatitis C Screening 06/03/2022 Social Influencers of Health Screening 06/03/2022 Pneumococcal Vaccine: 50+ Ye ars (1 of 1 - PCV) 2022 Zoster Vaccines (1 of 2) 2022 COVID-19 Vaccine (1 - 2023-2 5 season) 2024 Depression Screening 07/01/2024 Influenza Vaccine (#1) 2025 HIB Vaccines Aged [...]
== END 2025-02-16 10:36 | disposition home or self-care (01) ==
LOC: HO.HSMS 09:09
PROVIDERS: PCP Registered Nurse Community Health; Visit Provider Nurse Practitioner Family
DX: G47.10 Hypersomnia, unspecified (principal)
CPT/HCPCS: 99214

== ENCOUNTER → 2025-02-16 09:08 | Outpatient (BNVA) | payer OTHER, SELFPAY | PROVIDERS: PCP Registered Nurse Community Health; Visit Provider Nurse Practitioner Family | DX: R06.83 Snoring (principal); G47.10 Hypersomnia, unspecified; G47.9 Sleep disorder, unspecified | CPT/HCPCS: 99212 ==

== ENCOUNTER 2025-04-06 08:50 | Outpatient (AMB) | payer OTHER, SELFPAY ==
--- NOTE | 2025-04-06 08:52 | A.OFFVIS_ITS ---
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 54y/o female comes for treatment of migraines with botox.she has 2 headaches days a week .Prior to botox and ajovy she had daily headaches How many migraine days prior to botox 20 How long do the migraines last 2 days Intensity of [id number] ER visits related to migraine yes 2-3 Effectiveness of botox from last?two?treatment(s) How many migraine days since receiving treatment: 10 Change? in intensity of migraine?decreased Change in frequency of migraine?decreased Change in use of acute medication for migraine?decreased Change in quality of life?improved ER visits related to migraine?0 Explanation for any gaps in treatment-none Have at least three months elapsed since last treatment (Last botox date - frequency of injections)yes ??? Most frequent reported adverse reactions following injection of botox for chronic migraine include neck pain (9%), headache(5%), eyelid ptosis(4%), migraine(4%), muscular weakness(4%), musculuskeletal stiffness(4%), bronchitis(3%), injection site pain (3%), musculoskeletal pain(3%), myalgia(3%), facial paresis(2%), HTN(2%) and muscle spasms(2%) were discussed in detail. ??? Botulinum toxin typeA 200units Lot no [id number] expiration Mar 2027 was diluted with 4 cc of normal saline . ??? Muscles injected- ??? Frontalis 4 sites ??? Procerus 1 site ??? Truck Mechanic Apprentice- 2 sites ??? Temporalis- 8 sites ??? Occipitalis- 6 sites ??? Cervical paraspinals- 4 sites ??? Trapezius- 6 sites- 10 units each ??? 5 units each in 31 site ??? Total use- 185units ??? Discarded-15units she is doing better since she started on ajovy 8 mths ago Q PFSH Medical History Insomnia Hypersomnia Chronic migraine without aura Back pain Neck pain Anxiety Depression No pertinent family history Surgical History No pertinent past surgical history Family History Father HTN (hypertension) Paternal Grandmother Diabetes Mother Diabetes Social History Alcohol intake: current Alcohol intake frequency: holidays/special occasions only Patient Tobacco Use Status: Never used Tobacco Physical Exam Vital Signs: Last Vital Signs Pulse 58 04/06/25 08:53 BP 110/76 04/06/25 08:53 Pulse Ox 99 04/06/25 08:53 Oxygen Delivery Method Room Air 04/06/25 08:53 BMI result Body Mass Index 29.9 Office Procedures Botulinum toxin Injection 60611 - Migraine Procedure code (CPT) selection complete Office Meds onabotulinumtoxinA 200 unit solution for injection Performing Provider: Gabby Marques MD Performing Location: [facility] [place] [facility] Administered by: Gabby Marques MD on 04/06/25 09:20 Dose Route Admin Location Dispensed Lot Number Expiration Date [facility] [employer] 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 subcut 200 units [id number] [employer]ER[employer] /BOTOX Total Dispensed Waste 200 units 7.5 % Comments: see hpi Assessment & Plan Assessment & Plan (1) Chronic migraine without aura: Code(s): G43.709 - Chronic migraine without aura, not intractable, without status migrainosus Category: Medical Qualifiers: Status migrainosus presence: without status migrainosus Intractability: intractable Qualified Code(s): G43.719 - Chronic migraine without aura, intractable, without status migrainosus (2) Cervical spondylosis: Code(s): M47.812 - Spondylosis without myelopathy or radiculopathy, cervical region Category: Medical Plan Patient tolerated the procedure well she will call with any side effect Continue AJOVY 225 mg sQX3( total 675 mg ) q 3mths Orders: Orders AMB Botulinum toxin Injection Today G43.109 - Migraine with aura, not intractable, without status migrainosus Coding Level of Care Code Est Pt Level 1 (05389) Diagnoses Intractable chronic migraine without aura and without status migrainosus G43.719 Status migrainosus presence: without status migrainosus Intractability: intractable Cervical spondylosis M47.812 CPT Codes Botox Injection - Botox 3: 75565 - Migraine ([id number])
[2025-04-06 08:53] VITALS: BP 110/76; PULSE 58; O2SAT 99; BMI 29.9
--- OUTSIDE RECORDS SUMMARY | 2025-04-06 09:37 | XMS_ITS | Clinical Summary ---
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 Name Role Phone Unavailable Primary Care Provider [...] Last Done Comments Breast Cancer Screening 1972 Colorectal Cancer Screening: Colonoscopy 1972 DTaP,Tdap,and Td Vaccines (1 - Tdap) 1991 Hepatitis B Vaccines (1 of 3 - 19+ 3-dose series) 1991 Cervical Cancer Screening: P ap Smear 1993 HIV Screening 06/03/2022 Hepatitis C Screening 06/03/2022 Social Influencers of Health Screening 06/03/2022 Pneumococcal Vaccine: 50+ Ye ars (1 of 1 - PCV) 2022 Zoster Vaccines (1 of 2) 2022 Depression Screening 07/01/2024 COVID-19 Vaccine (1 - 2023-2 5 season) 2025 Influenza Vaccine (#1) 2025 RSV Immunization Adult Patie nts (1 - 1-dose 75+ series) 2047 HIB Vaccines Aged Out No longer eligi [...]
== END 2025-04-06 09:16 | disposition home or self-care (01) ==
LOC: HO.HSMS 08:51
PROVIDERS: PCP Registered Nurse Community Health; Visit Provider Psychiatry & Neurology Neurology
DX: G43.719 Chronic migraine without aura, intractable, without status migrainosus (principal)
CPT/HCPCS: 64615

== ENCOUNTER → 2025-04-06 08:50 | Outpatient (BNVA) | payer OTHER, SELFPAY | PROVIDERS: PCP Registered Nurse Community Health; Visit Provider Psychiatry & Neurology Neurology | DX: G43.709 Chronic migraine without aura, not intractable, without status migrainosus (principal); G43.719 Chronic migraine without aura, intractable, without status migrainosus | CPT/HCPCS: 64615; 99211; J0585 ==